=== PATIENT | male | born 1935 | race Caucasian/White ===

== ENCOUNTER 2021-04-15 09:05 | Observation (INO) ==
--- NOTE | 2021-04-15 09:20 | Emergency Department Note ---
Impression & Plan Elevated troponin, Left hip pain, Lower extremity edema, care home (current) use of anticoagulants, Mild cognitive impairment, Fall ED Provider Note NAME: ALBERTINA MCCALL AGE: 85 SEX: M : 1935 ARRIVES VIA: Ambulance INFORMANT: Patient, ED PROVIDER(S): Shane Rene DO CHIEF COMPLAINT: Fall HPI: Patient is a 85-year-old male who presents to ER following a fall yesterday where he had to be brought into the hospital waving contractor. He has been having trouble walking on the left hip since then. He has been walking. There is no report of any head pain. He is slightly confused but they note that his baseline. He does take Coumadin. Denies any headache or neck pain. No chest pain or shortness of breath. No belly pain, nausea, vomiting, or diarrhea. No dysuria, urgency, or frequency. No other exacerbating or remitting factors. ROS: See above HPI for pertinent positives & negatives. A total of 10 systems reviewed and were otherwise negative. PAST MEDICAL HISTORY:See Below PAST SURGICAL HISTORY:See Below FAMILY HISTORY:See Below SOCIAL HISTORY:See Below HOME MEDICATIONS:See Below ALLERGIES:See Below VITALS:See Below PHYSICAL EXAMINATION: GENERAL: alert, well appearing, well nourished, no distress, non-toxic HEAD: normal cephalic, atraumatic EYE EXAM: normal conjunctiva, PERRL and EOM's grossly intact OROPHARYNX: no exudate, no erythema, lips, buccal mucosa, and tongue normal and mucous membranes are moist NECK: supple, no nuchal rigidity, no adenopathy, non-tender CHEST: stable to compression anteriorly and posteriorly LUNGS: clear to auscultation. Normal chest wall mechanics HEART: no murmurs, S1 normal and S2 normal ABDOMEN: abdomen soft, non-tender, normo-active bowel sounds, no masses, no rebound or guarding. PELVIS: stable to compression anteriorly and posteriorly BACK: Back is symmetrical on inspection and there is no deformity, no midline tenderness, no CVA tenderness. UPPER EXTREMITIES: full active and passive range of motion of all joints without tenderness to palpation LOWER EXTREMITIES: Pitting edema in the lower extremities but full range of motion without tenderness with exception of the left hip with minimal tenderness NEURO EXAM: Normal sensorium, cranial nerves II-XII grossly intact, normal speech, no gross weakness of arms, no gross weakness of legs. GCS: 15. MEDICAL DECISION MAKING: Patient is an 85-year-old male who presents the ER for fall and left hip w eakness as well as swelling in the legs. IV was established blood work obtained. Labs show no significant leukocytosis or anemia. INR was 2.7. BMP with LFTs was unremarkable. Troponin was checked by 0.047. proBNP was 266. Lipase was normal. UA was unremarkable. Covid was negative. He did have pitting edema in the bilateral lower extremities. Given a small dose of Lasix and updated bedside. He denied any chest pain. EKG was nondiagnostic. Discussed with hospitalist admitted for further work-up. As patient had no chest pain or shortness of breath held on any heparin at this time. Calves were equal bilateral in favor PE much less likely especially without symptoms. Triage Nursing notes reviewed. Limited review of prior medical records performed Vital Signs: reviewed and remarkable for no significant abnormalities Differential diagnosis: Differential diagnoses include major intracranial, cervical, spinal, thoracic, abdominal, pelvic and neurologic injury. Fracture, contusion, sprain, strain, laceration, abrasions included as well. ER treatment provided: See below Diagnostics interpreted by me: ECG: Sinus bradycardia rate of 49 Normal axis Poor baseline Septal Q waves QTC [address] segment elevation V2 Cardiac Monitoring: An order was placed for continuous cardiac monitoring. The monitor shows a rate of 52 with sinus rhythm. Laboratory studies: As stated above and show below. Imaging studies: Chest x-ray as well as x-ray of the hand hip pelvis and CT of the head were negative Consultation(s): Discussed the hospitalist for further evaluation Procedures: none Critical Care: None Past Med/Surg History Medical History (Updated 04/15/21 @ 15:34 by Shane Rene DO) CKD (chronic kidney disease) stage 3, GFR 30-59 ml/min HTN (hypertension) care home (current) use of anticoagulants Mild cognitive impairment Prostate CA s/p brachytherapy Surgical History (Updated 04/15/21 @ 12:23 by Kacy Cat PA-C) History of appendectomy History of shoulder surgery b/l History of transcatheter aortic valve replacement (TAVR) 2015 Family History (Updated 04/15/21 @ 12:24 by Kacy Cat PA-C) Father COPD (chronic obstructive pulmonary disease) Mother Colorectal cancer Social History (Updated 04/15/21 @ 12:24 by Kacy Cat PA-C) Smoking Status: Never smoker Hx Alcohol Use: Yes Alcohol type: wine Alcohol Intake Frequency: 4 or More x per/Week Alcohol Intake Frequency Comment: daily, 8 oz per day Hx Substance Use: No Preferred Language: Polish Communication Ability: Effective marital status: Current Living Situation: Spouse Allergies Allergies Allergy/AdvReac Type Severity Reaction Status Date / Time No Known Allergies Allergy Unverified 04/15/21 11:44 Home Meds Home Medications Medication Instructions Recorded Confirmed amlodipine 5 mg tablet 5 mg PO PM 04/15/21 04/15/21 aspirin 81 mg tablet,delayed 81 mg PO PM 04/15/21 04/15/21 release furosemide 40 mg tablet 40 mg PO PM 04/15/21 04/15/21 glucosamine-chondroitin 250 mg-200 2 tab PO DAILY 04/15/21 04/15/21 mg tablet (Osteo Bi-Flex) losartan 25 mg tablet 25 mg PO PM 04/15/21 04/15/21 magnesium 250 mg tablet 250 mg PO DAILY 04/15/21 04/15/21 wgpoixox-lgu-lhcaa acid 300 1 tab PO PM 04/15/21 04/15/21 mcg-lycopene 600 mcg-lutein 300 mcg tablet (Centrum Silver Men) warfarin 2.5 mg tablet 1.25 mg PO MOFR@1600 04/15/21 04/15/21 warfarin 2.5 mg tablet 2.5 mg PO SUTUWETHSA@1600 04/15/21 04/15/21 Results & Data (ED) Vital Signs Vital Signs - 24 hr 04/15/21 09:15 04/15/21 09:18 04/15/21 09:20 Temperature 37 C Temperature Source Oral Pulse Rate 53 L Pulse Rate from SpO2 Sensor 52 L Respiratory Rate 18 17 Respiratory Depth Normal Blood Pressure 143/71 H Blood Pressure Mean 95 Pulse Oximetry 94 97 Oxygen Delivery Method Room Air Room Air Sepsis Recent Fever Within 48 Hours No Sepsis New/Unexplained Change in Mental Status No Sepsis Action Taken by Nursing No Action Required 04/15/21 09:45 04/15/21 10:00 04/15/21 10:15 Temperature Temperature Source Pulse Rate 53 L 53 L 53 L Pulse Rate from SpO2 Sensor 53 L 53 L 54 L Respiratory Rate 21 15 15 Respiratory Depth Blood Pressure Blood Pressure Mean Pulse Oximetry 97 97 99 Oxygen Delivery Method Sepsis Recent Fever Within 48 Hours Sepsis New/Unexplained Change in Mental Status Sepsis Action Taken by Nursing 04/15/21 10:30 04/15/21 10:45 Temperature Temperature Source Pulse Rate 51 L 50 L Pulse Rate from SpO2 Sensor 52 L 51 L Respiratory Rate 22 18 Respiratory Depth Blood Pressure Blood Pressure Mean Pulse Oximetry 97 97 Oxygen Delivery Method Sepsis Recent Fever Within 48 Hours Sepsis New/Unexplained Change in Mental Status Sepsis Action Taken by Nursing Laboratory Data Result diagrams: 04/15/21 09:15 04/15/21 09:15 Lab Results 04/15/21 04/15/21 04/15/21 Range/Units 09:15 09:15 09:15 WBC 8.86 (4.8-10.8) K/uL RBC 4.40 L (4.7-6.1) M/uL Hgb 13.3 L (14.0-18.0) g/dL Hct 41.3 L (42-52) % MCV 93.9 (80-100) fL MCH 30.2 (25-34) pg MCHC 32.2 (32-36) g/dL RDW Std Deviation 46.7 H (36.4-46.3) fL RDW Coeff of Porfirio 13.6 (11.5-14.5) % Plt Count 208 (130-400) K/uL MPV 10.0 (7.4-10.4) fL Immature Gran % (Auto) 0.2 % Neut % (Auto) 67.4 % Lymph % (Auto) 20.3 % [place] % (Auto) 10.5 % Eos % (Auto) 1.5 % Baso % (Auto) 0.1 % Neut # (Auto) 5.97 (1.4-6.5) K/uL Lymph # (Auto) 1.80 (1.2-3.4) K/uL [place] # (Auto) 0.93 H (0.11-0.59) K/uL Eos # (Auto) 0.13 (0-0.5) K/uL Baso # (Auto) 0.01 (0-0.2) K/uL Immature Gran # (Auto) 0.02 (0.00-0.02) K/uL PT 25.6 H (9.0-12.0) Seconds INR 2.7 H (0.9-1.1) Sodium 139 (136-145) mmol/L Potassium 4.6 (3.5-5.1) mmol/L Chloride 104 (98-107) mmol/L Carbon Dioxide 32 (21-32) mmol/L Anion Gap 3.0 (3-11) BUN 22 H (7-18) mg/dl Creatinine 1.40 (0.6-1.4) mg/dl Est Cr Clr Drug Dosing Not Reportable Est GFR ( Amer) 53.1 ml/min Est GFR (Non-Af Amer) 45.8 ml/min BUN/Creatinine Ratio 15.4 (10-20) Glucose 103 H (70-99) mg/dl Calcium 8.5 (8.5-10.1) mg/dl Total Bilirubin 0.7 (0.2-1) mg/dl AST 32 (15-37) U/L ALT 26 (12-78) U/L Alkaline Phosphatase 54 (45-117) U/L Troponin I 0.073 H* (0-0.045) ng/ml NT-Pro-B Natriuret Pep (0-1800) pg/ml Total Protein 6.2 L (6.4-8.2) gm/dl Albumin 3.2 L (3.4-5.0) gm/dl Globulin 3.0 (2.5-4.0) gm/dl Albumin/Globulin Ratio 1.1 (0.9-2) Lipase 213 (73-393) U/L Urine Color Urine Appearance (Clear) Urine pH (4.5-7.5) Ur Specific [place] (1.000-1.030) Urine Protein (Negative) Urine Glucose (UA) (Negative) Urine Ketones (Negative) Urine Blood (Negative) Urine Nitrite (Negative) Urine Bilirubin (Negative) Urine Urobilinogen (Negative) Ur Leukocyte Esterase (Negative) COVID-19 Eval Order SARS-CoV-2 (PCR) (Negative) 04/15/21 04/15/21 04/15/21 Range/Units 09:15 10:19 10:19 WBC (4.8-10.8) K/uL RBC (4.7-6.1) M/uL Hgb (14.0-18.0) g/dL Hct (42-52) % MCV (80-100) fL MCH (25-34) pg MCHC (32-36) g/dL RDW Std Deviation (36.4-46.3) fL RDW Coeff of Porfirio (11.5-14.5) % Plt Count (130-400) K/uL MPV (7.4-10.4) fL Immature Gran % (Auto) % Neut % (Auto) % Lymph % (Auto) % [place] % (Auto) % Eos % (Auto) % Baso % (Auto) % Neut # (Auto) (1.4-6.5) K/uL Lymph # (Auto) (1.2-3.4) K/uL [place] # (Auto) (0.11-0.59) K/uL Eos # (Auto) (0-0.5) K/uL Baso # (Auto) (0-0.2) K/uL Immature Gran # (Auto) (0.00-0.02) K/uL PT (9.0-12.0) Seconds INR (0.9-1.1) Sodium (136-145) mmol/L Potassium (3.5-5.1) mmol/L Chloride (98-107) mmol/L Carbon Dioxide (21-32) mmol/L Anion Gap (3-11) BUN (7-18) mg/dl Creatinine (0.6-1.4) mg/dl Est Cr Clr Drug Dosing Est GFR ( Amer) ml/min Est GFR (Non-Af Amer) ml/min BUN/Creatinine Ratio (10-20) Glucose (70-99) mg/dl Calcium (8.5-10.1) mg/dl Total Bilirubin (0.2-1) mg/dl AST (15-37) U/L ALT (12-78) U/L Alkaline Phosphatase (45-117) U/L Troponin I (0-0.045) ng/ml NT-Pro-B Natriuret Pep 266 (0-1800) pg/ml Total Protein (6.4-8.2) gm/dl Albumin (3.4-5.0) gm/dl Globulin (2.5-4.0) gm/dl Albumin/Globulin Ratio (0.9-2) Lipase (73-393) U/L Urine Color Urine Appearance (Clear) Urine pH (4.5-7.5) Ur Specific [place] (1.000-1.030) Urine Protein (Negative) Urine Glucose (UA) (Negative) Urine Ketones (Negative) Urine Blood (Negative) Urine Nitrite (Negative) Urine Bilirubin (Negative) Urine Urobilinogen (Negative) Ur Leukocyte Esterase (Negative) COVID-19 Eval Order Covid19 at [facility] SARS-CoV-2 (PCR) NEGATIVE (Negative) 04/15/21 Range/Units 10:59 WBC (4.8-10.8) K/uL RBC (4.7-6.1) M/uL Hgb (14.0-18.0) g/dL Hct (42-52) % MCV (80-100) fL MCH (25-34) pg MCHC (32-36) g/dL RDW Std Deviation (36.4-46.3) fL RDW Coeff of Porfirio (11.5-14.5) % Plt Count (130-400) K/uL MPV (7.4-10.4) fL Immature Gran % (Auto) % Neut % (Auto) % Lymph % (Auto) % [place] % (Auto) % Eos % (Auto) % Baso % (Auto) % Neut # (Auto) (1.4-6.5) K/uL Lymph # (Auto) (1.2-3.4) K/uL [place] # (Auto) (0.11-0.59) K/uL Eos # (Auto) (0-0.5) K/uL Baso # (Auto) (0-0.2) K/uL Immature Gran # (Auto) (0.00-0.02) K/uL PT (9.0-12.0) Seconds INR (0.9-1.1) Sodium (136-145) mmol/L Potassium (3.5-5.1) mmol/L Chloride (98-107) mmol/L Carbon Dioxide (21-32) mmol/L Anion Gap (3-11) BUN (7-18) mg/dl Creatinine (0.6-1.4) mg/dl Est Cr Clr Drug Dosing Est GFR ( Amer) ml/min Est GFR (Non-Af Amer) ml/min BUN/Creatinine Ratio (10-20) Glucose (70-99) mg/dl Calcium (8.5-10.1) mg/dl Total Bilirubin (0.2-1) mg/dl AST (15-37) U/L ALT (12-78) U/L Alkaline Phosphatase (45-117) U/L Troponin I (0-0.045) ng/ml NT-Pro-B Natriuret Pep (0-1800) pg/ml Total Protein (6.4-8.2) gm/dl Albumin (3.4-5.0) gm/dl Globulin (2.5-4.0) gm/dl Albumin/Globulin Ratio (0.9-2) Lipase (73-393) U/L Urine Color Dark Yellow Urine Appearance Clear (Clear) Urine pH 7.5 (4.5-7.5) Ur Specific [place] 1.015 (1.000-1.030) Urine Protein Negative (Negative) Urine Glucose (UA) Negative (Negative) Urine Ketones Negative (Negative) Urine Blood Negative (Negative) Urine Nitrite Negative (Negative) Urine Bilirubin Negative (Negative) Urine Urobilinogen Negative (Negative) Ur Leukocyte Esterase Negative (Negative) COVID-19 Eval Order SARS-CoV-2 (PCR) (Negative) Administered Medications Discontinued Medications Furosemide (Furosemide 40 Mg/4 Ml Vial) 40 mg IV NOW STA Stop: 04/15/21 10:57 Last Admin: 04/15/21 11:34 Dose: 40 mg Documented by: [id number] Imaging Data Radiologist's Impression: Head CT 04/15/21 09:[address] DOSE: 537.48 mGy.cm HISTORY: Headache. TECHNIQUE: Multiaxial CT images of the head were performed without the use of intravenous contrast. Automated exposure control was utilized for this study. A dose lowering technique was utilized adhering to the principles of ALARA. Comparison: None. Findings: The paranasal sinuses and mastoid air cells are clear. The calvarium and skull base are intact. There is no mass, hematoma, midline shift, acute infarct. White matter hypodensity is nonspecific but suggestive of microvascular ischemic change. The ventricles and sulci demonstrate mild age-related involutional changes. 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 Impression: No acute intracranial abnormality. Atrophy and microvascular ischemic changes. ACT 112: Negative or not required by law. Electronically signed by: Jorge Ruffin M.D. 04/15/2021 9:55 AM Hip/Pelvis X-Ray 04/15/21 09:15 XR hip LT 2V w pelvis CLINICAL HISTORY: l pelvis pain status post fall yesterday TECHNIQUE: 2 views of the right hip and single frontal view of the pelvis were obtained. Comparison: None available at the time of this dictation. FINDINGS: There is no evidence of fracture, subluxation or dislocation. The bones are anatomically aligned. Metallic densities are seen in the midline of the pelvis. IMPRESSION: No evidence of acute bony injury. ACT 112: Negative or not required by law. Electronically signed by: Matthias Marquez M.D. 04/15/2021 10:17 AM Hand X-Ray 04/15/21 09:49 LEFT HAND 3 VIEWS HISTORY: Left hand pain. COMPARISON: None. FINDINGS: There is no fracture or dislocation. 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 Faint chondrocalcinosis within the wrist is noted. Mild cartilage space narrowing and small marginal osteophytes within the DIP and PIP joints consistent with degenerative change. No erosive changes identified. The bones are slightly osteopenic. No radiopaque foreign bodies. IMPRESSION: 1. No acute fracture or dislocation within the left hand. 2. Degenerative changes as described above. 3. Chondrocalcinosis within the wrist. ACT 112: Negative or not required by law. Electronically signed by: Jorge Ruffin M.D. 04/15/2021 10:20 AM Discharge Plan Visit Data Chief Complaint: Hip Pain Stated Complaint: L Hip pain s/p fall yesterday ED Provider: Shane Rene Discharge Problem: Elevated troponin, Left hip pain, Lower extremity edema, care home (current) use of anticoagulants, Mild cognitive impairment, Fall
[2021-04-15 09:32] LABS: Basophils # (auto) 0.01 K/uL (0-0.2); Basophils % (auto) 0.1 %; Eosinophils # (auto) 0.13 K/uL (0-0.5); Eosinophils % (auto) 1.5 %; Hematocrit (blood only) 41.3 % (42-52); Hemoglobin 13.3 g/dL (14.0-18.0); Immature Granulocytes # (auto) 0.02 K/uL (0.00-0.02); Immature Granulocytes % (auto) 0.2 %; Lymphocytes % (auto) 20.3 %; Mean Corpuscular Hemoglobin 30.2 pg (25-34); Mean Corpuscular Hgb Conc 32.2 g/dL (32-36); Mean Corpuscular Volume 93.9 fL (80-100); Monocytes # (auto) 0.93 K/uL (0.11-0.59); Monocytes % (auto) 10.5 %; Neutrophils # (auto) 5.97 K/uL (1.4-6.5); Neutrophils % (auto) 67.4 %; Platelet Count 208 K/uL (130-400); RDW Coefficient of Variation 13.6 % (11.5-14.5); RDW Standard Deviation 46.7 fL (36.4-46.3); White Blood Count 8.86 K/uL (4.8-10.8)
[2021-04-15 09:40] LABS: INR 2.7 (0.9-1.1); Prothrombin Time 25.6 Seconds (9.0-12.0)
[2021-04-15 09:49] LABS: Alanine Aminotransferase 26 U/L (12-78); Albumin Level 3.2 gm/dl (3.4-5.0); Aspartate Aminotransferase 32 U/L (15-37); BUN Creatinine Ratio 15.4 (10-20); Blood Urea Nitrogen 22 mg/dl (7-18); Calcium 8.5 mg/dl (8.5-10.1); Carbon Dioxide 32 mmol/L (21-32); Chloride 104 mmol/L (98-107); Est GFR (African American) 53.1 ml/min; Est GFR (Non-African American) 45.8 ml/min; Glucose 103 mg/dl (70-99); Lipase 213 U/L (73-393); Potassium 4.6 mmol/L (3.5-5.1); Sodium 139 mmol/L (136-145)
--- NOTE | 2021-04-15 09:56 | CT Scan Report ---
HEAD CT NONCONTRAST CT DOSE: 537.48 mGy.cm HISTORY: Headache. TECHNIQUE: Multiaxial CT images of the head were performed without the use of intravenous contrast. A utomated exposure control was utilized for this study. A dose lowering technique was utilized adheri ng to the principles of ALARA. Comparison: None. Findings: The paranasal sinuses and mastoid air cells are clear. The calvarium and skull base are int act. There is no mass, hematoma, midline shift, acute infarct. White matter hypodensity is nonspecifi c but suggestive of microvascular ischemic change. The ventricles and sulci demonstrate mild age-rela mike involutional changes. 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 Impression: No acute intracranial abnormality. Atrophy and microvascular ischemic changes. ACT 112: Negative or not required by law. Electronically signed by: Jorge Ruffin M.D. 04/15/2021 9:55 AM
[2021-04-15 10:01] LABS: Albumin Globulin Ratio 1.1 (0.9-2); Alkaline Phosphatase 54 U/L (45-117); Bilirubin,Total 0.7 mg/dl (0.2-1); Total Protein 6.2 gm/dl (6.4-8.2); Troponin I 0.073 ng/ml (0-0.045)
--- NOTE | 2021-04-15 10:18 | XRay Report ---
XR hip LT 2V w pelvis CLINICAL HISTORY: l pelvis pain status post fall yesterday TECHNIQUE: 2 views of the right hip and single frontal view of the pelvis were obtained. Comparison: None available at the time of this dictation. FINDINGS: There is no evidence of fracture, subluxation or dislocation. The bones are anatomically aligned. Met allic densities are seen in the midline of the pelvis. IMPRESSION: No evidence of acute bony injury. ACT 112: Negative or not required by law. Electronically signed by: Matthias Marquez M.D. 04/15/2021 10:17 AM
--- NOTE | 2021-04-15 10:22 | XRay Report ---
LEFT HAND 3 VIEWS HISTORY: Left hand pain. COMPARISON: None. FINDINGS: There is no fracture or dislocation. Severe osteoarthritis at the first carpometacarpal katt nt and first and second MCP joints demonstrated by [id number] articulation with large marginal oste ophytes. Faint chondrocalcinosis within the wrist is noted. Mild cartilage space narrowing and small marginal osteophytes within the DIP and PIP joints consistent with degenerative change. No erosive ch anges identified. The bones are slightly osteopenic. No radiopaque foreign bodies. IMPRESSION: 1. No acute fracture or dislocation within the left hand. 2. Degenerative changes as described above. 3. Chondrocalcinosis within the wrist. ACT 112: Negative or not required by law. Electronically signed by: Jorge Ruffin M.D. 04/15/2021 10:20 AM
[2021-04-15] MEDS ORDERED: FUROSEMIDE 40 MG/4 ML VIAL IV STA (10:56)
[2021-04-15 11:28] LABS: Appearance Urine Clear (Clear); Bilirubin Urine Negative (Negative); Blood Urine Negative (Negative); Color Urine Dark Yellow; Glucose Urine UA Negative (Negative); Ketones Urine Negative (Negative); Leukocyte Esterase Urine Negative (Negative); Nitrite Urine Negative (Negative); Protein Urine Negative (Negative); Specific Gravity Urine 1.015 (1.000-1.030); Urobilinogen Urine Negative (Negative); pH Urine 7.5 (4.5-7.5)
--- NOTE | 2021-04-15 12:06 | History & Physical Report ---
Date of Service April 15, 2021 Assessment & Plan (1) Fall: (2) Left hip pain: (3) Elevated troponin: (4) HTN (hypertension): (5) custodial (current) use of anticoagulants: (6) CKD (chronic kidney disease) stage 3, GFR 30-59 ml/min: (7) Lower extremity edema: Plan: This is an 85-year-old male who has significant past medical history of TAVR, long-term anticoagulation with Coumadin, history of prostate cancer status post brachytherapy, hypertension who presents to ED after sustaining mechanical fall and having left hip pain x 1 day. Pt is from [place], [place] and they are currently relocated back to [place], [place]. Will need to obtain records from PCP Dr. Jose J Coppola and [place] Dr. Nba Lyon. Fall, mechnical L hip pain imaging does not reveal acute fx obtain PT/OT consults APAP, ICE Elevated troponin unknown baseline pt is w/o chest pain/sob and ekg w/o st t wave change cycle trops obtain echo consult cardiology - pt will need to establish with cardiology in area HTN bp stable continue losartan and amlodipine monitor Lower extremity swelling pro BNP WNL and CXR w/o pulm vasc congestion edema may be dependent, vs ADR with amlodipine less likely volume overload will monitor daily weights, strict I and O TEDS ordered he did receive Lasix 40mg IV in ED, monitor output hold 40mg po daily lasix for now, resume when able custodial use of warfarin pt and state 2/2 to TAVR? will need to obtain cardiology recs states INR goal is 2-3, INR therapeutic today continue home regimen, 1.25 MoFR and 2.5mg all other days Abrasion to b/l knee 2/2 to fall apply Neosporin daily CKD-3 unknown baseline bun/cr 22 and 1.40 monitor Mild cognitive impairment pt alert to self and place states baseline, no formal dx of dementia DVT ppx: continue warfarin, INR 2.7 Dispo: med tele, will need PT/OT eval to determine dispo FULL CODE PCP: needs to establish with [facility] PCP Pt was seen and examined in collaboration with Dr. Faith, please see addendum History of Present Illness Chief Complaint: L Hip Pain x 1 day. Primary Care Provider: Jose J Coppola MD This is an 85-year-old male who has significant past medical history of TAVR, long-term anticoagulation with Coumadin, history of prostate cancer status post brachytherapy, hypertension who presents to ED after sustaining mechanical fall and having left hip pain x 1 day. His is at bedside. Of significance patient and reside mainly in [place], [place], but come back to [place] on occasion. Currently they are in the process of renovating a house and moving back to the [place] area permanently. Yesterday patient was taking the trash out and pulling the can down the driveway when he lost his footing and fell on his left side. provides most of history. She states it took approximately an hour and a half to get him back inside. He ended up falling on his hands and knees back to the carport. He since complained of left hip pain and also sustained abrasions to his left hand and bilateral knees. She had been using topical Neosporin for this. He has not been using anything [id number] for pain. He is having difficulty ambulating but was able to get from the living room chair to bed her last evening. opted to bring patient to ED due to left hip pain and lack of mobility. He did not hit his head or lose consciousness. It appears patient does have some underlying cognitive deficits, but history appears reliable. Up until yesterday's fall he has been in her normal state of health. He denies recent illness, fever, chills, sweats, lightheadedness, dizziness, syncope, chest pain, shortness of breath at rest, cough, hemoptysis, nausea, vomiting, abdominal pain. His appetite is otherwise been normal. He does have bilateral lower extremity swelling. states they use ALDO hose for this and he does take Lasix. He prefers to take Lasix at night despite requiring him to go to the bathroom. He has missed his Lasix on occasion. Patient denies prior history of heart failure. In ED he remained hemodynamically stable. He underwent imaging to hip and pelvis which was negative for acute fracture. Head CT was negative for acute abnormality. His CBC and CMP were generally unremarkable except for BUN 22, creatinine 1.4, glucose 103, elevated troponin 0.073. His urinalysis was negative and proBNP was WNL. His H&H was stable at 13.3 and 41.3. Allergies Allergy/AdvReac Type Severity Reaction Status Date / Time No Known Allergies Allergy Unverified 04/15/21 11:44 Home Medications Medication Instructions Recorded Confirmed Type amlodipine 5 mg tablet 5 mg PO PM 04/15/21 04/15/21 History aspirin 81 mg tablet,delayed 81 mg PO PM 04/15/21 04/15/21 History release furosemide 40 mg tablet 40 mg PO PM 04/15/21 04/15/21 History glucosamine-chondroitin 250 mg-200 2 tab PO DAILY 04/15/21 04/15/21 History mg tablet (Osteo Bi-Flex) losartan 25 mg tablet 25 mg PO PM 04/15/21 04/15/21 History magnesium 250 mg tablet 250 mg PO DAILY 04/15/21 04/15/21 History wpgppxds-yoz-tbeyi acid 300 1 tab PO PM 04/15/21 04/15/21 History mcg-lycopene 600 mcg-lutein 300 mcg tablet (Centrum Silver Men) warfarin 2.5 mg tablet 1.25 mg PO MOFR@1600 04/15/21 04/15/21 History warfarin 2.5 mg tablet 2.5 mg PO SUTUWETHSA@1600 04/15/21 04/15/21 History Past Med/Surg History Medical History (Updated 04/15/21 @ 15:34 by Shane Rene DO) CKD (chronic kidney disease) stage 3, GFR 30-59 ml/min 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 (hypertension) 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 Mild cognitive impairment Prostate CA s/p brachytherapy Surgical History (Updated 04/15/21 @ 12:23 by Kacy Cat PA-C) History of appendectomy History of shoulder surgery b/l History of transcatheter aortic valve replacement (TAVR) 2016 Family History (Updated 04/15/21 @ 12:24 by Kacy Cat PA-C) Father COPD (chronic obstructive pulmonary disease) Mother Colorectal cancer Social History (Updated 04/15/21 @ 12:24 by Kacy Cat PA-C) Smoking Status: Never smoker Hx Alcohol Use: Yes Alcohol type: wine Alcohol Intake Frequency: 4 or More x per/Week Alcohol Intake Frequency Comment: daily, 8 oz per day Hx Substance Use: No Preferred Language: Icelandic Communication Ability: Effective marital status: Current Living Situation: Spouse Review of Systems Review of Systems: All systems reviewed & are unremarkable except as noted in HPI & below Physical Exam Physical Exam: Constitutional: WD/WN, [place], M, hard of hearing, alert to self and place only, vitals as above, NAD, sitting up in bed, pleasant, conversing easily Head: Normocephalic, Atraumatic Eyes: PERRL, conjunctivae normal, anicteric sclerae ENMT: external ear and nose normal, oropharynx normal Neck: trachea midline, no thyromegaly normal visual inspection Respiratory: normal respiratory effort, lungs clear to auscultation, no wheeze, rales, rhonchi. Normal insp/exp effort, no accessory muscle use Cardiovascular: bradycardic rate, reg rhythm, +2 lower ext edema, no murmur Vessels: no JVD or carotid bruit Chest: normal inspection of chest Abdomen: normal bowel sounds, soft, nontender, no hepatosplenomegaly Musculoskeletal: no cyanosis or clubbing, extremities AROM x 4, pain to palp L lateral thigh, strength 4/5 Skin: no rashes, warm and dry normal turgor Neurologic: PERRL, EOMI, accommodation nl, no face palsy, no dysarthria CN's II-XI intact bilaterally and moves all extremities Psychiatric: A+Ox2 to self and place, not oriented to year/date, president, euthymic affect Lymphatic: no cervical or axillary lymphadenopathy : deferred denies Results & Data Results & Data ([facility]) Vital Signs (Past 12 Hours) Vital Signs Temp Pulse Resp BP Pulse Ox 04/15/21 11:15 53 L 25 H 97 04/15/21 11:00 57 L 25 H 96 04/15/21 10:45 50 L 18 97 04/15/21 10:30 51 L 22 97 04/15/21 10:15 53 L 15 99 04/15/21 10:00 53 L 15 97 04/15/21 09:45 53 L 21 97 04/15/21 09:18 53 L 17 97 04/15/21 09:15 37 C 18 143/71 H [address] 04/15/21 09:[address] DOSE: 537.48 mGy.cm HISTORY: Headache. TECHNIQUE: Multiaxial CT images of the head were performed without the use of intravenous contrast. Automated exposure control was utilized for this study. A dose lowering technique was utilized adhering to the principles of ALARA. Comparison: None. Findings: The paranasal sinuses and mastoid air cells are clear. The calvarium and skull base are intact. There is no mass, hematoma, midline shift, acute infarct. White matter hypodensity is nonspecific but suggestive of microvascular ischemic change. The ventricles and sulci demonstrate mild age-related involutional changes. 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 Impression: No acute intracranial abnormality. Atrophy and microvascular ischemic changes. ACT 112: Negative or not required by law. Electronically signed by: Jorge Ruffin M.D. 04/15/2021 9:55 AM Hip/Pelvis X-Ray 04/15/21 09:15 XR hip LT 2V w pelvis CLINICAL HISTORY: l pelvis pain status post fall yesterday TECHNIQUE: 2 views of the right hip and single frontal view of the pelvis were obtained. Comparison: None available at the time of this dictation. FINDINGS: There is no evidence of fracture, subluxation or dislocation. The bones are anatomically aligned. Metallic densities are seen in the midline of the pelvis. IMPRESSION: No evidence of acute bony injury. ACT 112: Negative or not required by law. Electronically signed by: Matthias Marquez M.D. 04/15/2021 10:17 AM Hand X-Ray 04/15/21 09:49 LEFT HAND 3 VIEWS HISTORY: Left hand pain. COMPARISON: None. FINDINGS: There is no fracture or dislocation. 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 Faint chondrocalcinosis within the wrist is noted. Mild cartilage space narrowing and small marginal osteophytes within the DIP and PIP joints consistent with degenerative change. No erosive changes identified. The bones are slightly osteopenic. No radiopaque foreign bodies. IMPRESSION: 1. No acute fracture or dislocation within the left hand. 2. Degenerative changes as described above. 3. Chondrocalcinosis within the wrist. ACT 112: Negative or not required by law. Electronically signed by: Jorge Ruffin M.D. 04/15/2021 10:20 AM Chest X-Ray 04/15/21 11:43 SINGLE VIEW CHEST CLINICAL HISTORY: Dyspnea. FINDINGS: An AP, portable, upright chest radiograph is obtained. No prior studies are available for comparison at the time of dictation. The examination is degraded by portable technique and patient rotation. There are calcified hilar nodes. The heart is mildly enlarged noting atherosclerotic calcification of the thoracic aorta. The pulmonary vasculature is noncongested. There is elevation of the right hemidiaphragm and bibasilar atelectasis. No airspace consolidation typical for pneumonia or large pleural effusion is identified. Calcified granuloma is noted in the left lower lung. No pneumothorax is seen. The skeletal structures are osteopenic. The bony thorax is grossly intact. Advanced arthritic change is seen in the shoulders. Postoperative change is partially visualized in the left humeral head. IMPRESSION: Mild cardiomegaly with no acute cardiopulmonary abnormality. ACT 112: Negative or not required by law. Electronically signed by: Jama Reaves M.D. 04/15/2021 12:14 PM Medications Administered Medication List Discontinued Medications Furosemide (Furosemide 40 Mg/4 Ml Vial) 40 mg IV NOW STA Stop: 04/15/21 10:57 Last Admin: 04/15/21 11:34 Dose: 40 mg Documented by: [id number] ECG Rate (beats per minute): 49 Rhythm: sinus bradycardia Findings: + 1st degree AV block COVID-19 Results Results COVID-19 Adm Lab Results: RBC 4.40 M/uL (4.7-6.1) L 04/15/21 WBC 8.86 K/uL (4.8-10.8) 04/15/21 Hgb 13.3 g/dL (14.0-18.0) L 04/15/21 Hct 41.3 % (42-52) L 04/15/21 Plt Count 208 K/uL (130-400) 04/15/21 Neutrophils (%) (Auto) 67.4 % 04/15/21 Lymphocytes (%) (Auto) 20.3 % 04/15/21 Monocytes # (Auto) 0.93 K/uL (0.11-0.59) H 04/15/21 Eosinophils # (Auto) 0.13 K/uL (0-0.5) 04/15/21 Immature Granulocyte % (Auto) 0.2 % 04/15/21 Neutrophils # (Auto) 5.97 K/uL (1.4-6.5) 04/15/21 Lymphocytes # (Auto) 1.80 K/uL (1.2-3.4) 04/15/21 Monocytes # (Auto) 0.93 K/uL (0.11-0.59) H 04/15/21 Eosinophils # (Auto) 0.13 K/uL (0-0.5) 04/15/21 Basophils # (Auto) 0.01 K/uL (0-0.2) 04/15/21 Immature Granulocyte # (Auto) 0.02 K/uL (0.00-0.02) 04/15/21 Na 139 mmol/L (136-145) 04/15/21 K 4.6 mmol/L (3.5-5.1) 04/15/21 Cl 104 mmol/L (98-107) 04/15/21 CO2 32 mmol/L (21-32) 04/15/21 Anion Gap 3.0 (3-11) 04/15/21 BUN 22 mg/dl (7-18) H 04/15/21 Creatinine 1.40 mg/dl (0.6-1.4) 04/15/21 BUN/Creatinine Ratio 15.4 (10-20) 04/15/21 Glucose Level 103 mg/dl (70-99) H 04/15/21 Ca 8.5 mg/dl (8.5-10.1) 04/15/21 Total Bilirubin 0.7 mg/dl (0.2-1) 04/15/21 AST/SGOT 32 U/L (15-37) 04/15/21 ALT/SGPT 26 U/L (12-78) 04/15/21 Alkaline Phosphatase 54 U/L (45-117) 04/15/21 Total Protein 6.2 gm/dl (6.4-8.2) L 04/15/21 Albumin 3.2 gm/dl (3.4-5.0) L 04/15/21 Globulin 3.0 gm/dl (2.5-4.0) 04/15/21 Albumin/Globulin Ratio 1.1 (0.9-2) 04/15/21 Troponin I 0.047 ng/ml (0-0.045) H* 04/15/21 TP-Mpm-W-Type Natriuretic Pep 266 pg/ml (0-1800) 04/15/21 INR 2.7 (0.9-1.1) H 04/15/21 COVID-19 PCR NEGATIVE (Negative) 04/15/21 Chest X-Ray 04/15/21 Code Status & VTE Plan Code Status full code VTE Prophylaxis Plan VTE Prophylaxis will be ordered: Yes Supervising Physician Co-Signing Physician Notes And is an 85-year-old male with multiple comorbidities presents with history of mechanical fall resulting in left hip pain since 1 day duration. Patient had difficulty with ambulation secondary to pain. Imaging studies did not show any acute fractures. He was found to be bradycardic while in the ER, INR therapeutic 2.7, mild troponin elevation 0.073, patient denies any chest pain, dyspnea, dizziness, nausea, abdominal pain. Please review HPI for complete details of presentation. On exam patient is obese, no apparent distress, n ormocephalic atraumatic, EOMI, normal breath sounds, clear to auscultation, S1- S2, no audible murmur, bradycardia, abdomen soft, nontender, normal bowel sounds, alert, awake, oriented, grossly no focal deficits, left lower extremity tenderness at the thigh region, decreased mobility due to pain, bilateral lower extremity edema present. Patient is admitted for management of left hip pain associated with ambulatory dysfunction secondary to mechanical fall. Incidentally also noted mild troponin elevation. Given significant cardiac history, will obtain resting echo, trend cardiac enzymes and obtain old records. Will check CK levels and consider repeat imaging if leg pain does not improve tomorrow given anticoagulation with Coumadin. PT OT evaluation, fall precautions. May need rehab placement. I personally reviewed the record. Patient is interviewed and examined at bedside. Patient's care is coordinated with Kacy Cat PA-C. Please refer to the documentation above for details of patient's presentation and for discussion of other issues.
--- NOTE | 2021-04-15 12:15 | XRay Report ---
SINGLE VIEW CHEST CLINICAL HISTORY: Dyspnea. FINDINGS: An AP, portable, upright chest radiograph is obtained. No prior studies are available for c omparison at the time of dictation. The examination is degraded by portable technique and patient rot ation. There are calcified hilar nodes. The heart is mildly enlarged noting atherosclerotic calcifica tion of the thoracic aorta. The pulmonary vasculature is noncongested. There is elevation of the righ t hemidiaphragm and bibasilar atelectasis. No airspace consolidation typical for pneumonia or large p leural effusion is identified. Calcified granuloma is noted in the left lower lung. No pneumothorax i s seen. The skeletal structures are osteopenic. The bony thorax is grossly intact. Advanced arthritic change is seen in the shoulders. Postoperative change is partially visualized in the left humeral he ad. IMPRESSION: Mild cardiomegaly with no acute cardiopulmonary abnormality. ACT 112: Negative or not required by law. Electronically signed by: Jama Reaves M.D. 04/15/2021 12:14 PM
[2021-04-15] MEDS ORDERED: MAGNESIUM HYDROXIDE SUSP 30 ML UDC PO PRN (17:03)
[2021-04-15] MEDS ORDERED: ALUMINUM/MAGNESIUM SUSP 30 ML UDC PO PRN (17:03)
[2021-04-15] MEDS ORDERED: ACETAMINOPHEN 325 MG TAB PO PRN (17:03)
[2021-04-15] MEDS ORDERED: ONDANSETRON INJ 2 MG/ML 2 ML VIAL IV PRN (17:03)
[2021-04-15] MEDS ORDERED: POLYETHYLENE (MIRALAX) 17 GM PACK PO PRN (17:03)
[2021-04-15] MEDS: ACETAMINOPHEN 325 MG TAB PO SCH ×2 (17:41→20:12)
[2021-04-15] MEDS: WARFARIN SOD 2.5 MG TAB PO SCH (18:19)
--- NOTE | 2021-04-15 19:13 | Ultrasound Report ---
RENAL ULTRASOUND CLINICAL HISTORY: Hematuria. COMPARISON STUDY: None. TECHNIQUE: Sonography of the kidneys and the urinary bladder was performed. FINDINGS: This exam is significantly compromised by suboptimal penetration. The right kidney measures approximately 9.3 x 5.2 x 6.2 cm and the left measures 10 x 4.7 x 6.7 cm. There is no hydronephrosis . Both ureteral jets were identified. IMPRESSION: 1. No hydronephrosis. 2. Exam significantly compromised by suboptimal penetration. ACT 112: Negative or not required by law. Electronically signed by: Maxwell Funez M.D. 04/15/2021 7:11 PM
[2021-04-15 20:27] LABS: Troponin I 0.048 ng/ml (0-0.045)
[2021-04-15] MEDS: NEOMYCIN/POLYMYX/BACITR OINT 15 GM TUBE EXT SCH (20:43)
[2021-04-15] MEDS ORDERED: ASPIRIN 81 MG ECTAB PO SCH (21:00)
[2021-04-15] MEDS ORDERED: LOSARTAN POTASSIUM 25 MG TAB PO SCH (21:00)
[2021-04-15] MEDS ORDERED: MULTIVITAMIN TAB PO SCH (21:00)
[2021-04-15] MEDS ORDERED: amLODIPine BESYLATE 5 MG TAB PO SCH (21:00)
[2021-04-16 06:58] LABS: Hematocrit (blood only) 37.3 % (42-52); Hemoglobin 12.1 g/dL (14.0-18.0); Mean Corpuscular Hemoglobin 29.7 pg (25-34); Mean Corpuscular Hgb Conc 32.4 g/dL (32-36); Mean Corpuscular Volume 91.6 fL (80-100); Mean Platelet Volume 10.3 fL (7.4-10.4); Platelet Count 195 K/uL (130-400); RDW Coefficient of Variation 13.9 % (11.5-14.5); RDW Standard Deviation 46.4 fL (36.4-46.3); Red Blood Count 4.07 M/uL (4.7-6.1); White Blood Count 7.25 K/uL (4.8-10.8)
[2021-04-16 07:22] LABS: INR 2.6 (0.9-1.1); Prothrombin Time 24.6 Seconds (9.0-12.0)
[2021-04-16 07:30] LABS: BUN Creatinine Ratio 16.4 (10-20); Blood Urea Nitrogen 21 mg/dl (7-18); Calcium 8.5 mg/dl (8.5-10.1); Carbon Dioxide 28 mmol/L (21-32); Chloride 106 mmol/L (98-107); Chol HDL Ratio 3; Cholesterol 161 mg/dl (0-200); Creatine Kinase 620 U/L (39-308); Est GFR (African American) 59.7 ml/min; Est GFR (Non-African American) 51.5 ml/min; Glucose 94 mg/dl (70-99); HDL Cholesterol 48 mg/dl; LDL Cholesterol Calculated 96 mg/dl; Magnesium 2.4 mg/dl (1.8-2.4); Potassium 3.8 mmol/L (3.5-5.1); Sodium 140 mmol/L (136-145); Triglycerides 86 mg/dl (0-150); VLDL Cholesterol 17 mg/dl
[2021-04-16 07:32] LABS: Estimated Average Glucose 105 mg/dl; Hemoglobin A1C 5.3 % (4.5-5.6)
[2021-04-16] MEDS: ACETAMINOPHEN 325 MG TAB PO SCH ×2 (07:57→15:19)
[2021-04-16] MEDS: NEOMYCIN/POLYMYX/BACITR OINT 15 GM TUBE EXT SCH (07:58)
--- NOTE | 2021-04-16 08:30 | Cardiology Consultation ---
Date of Consultation April 16, 2021 Assessment & Plan (1) Fall: (2) Left hip pain: (3) Elevated troponin: (4) S/P TAVR (transcatheter aortic valve replacement): (5) HTN (hypertension): Patient admitted s/p fall and left hip pain. No acute facture. Recommend PT/OT and pain management. If ongoing trouble ambulating, could consider further imaging or ortho consult. Mildly elevated troponin, not indicative of ACS. Normal EKG. Unremarkable echo without wall motion abnormalities. Minimal troponin elevation due to demand ischemia, with elevated BP in setting of acute pain. He has no anginal symptoms. No known history of CAD. Cardiology records from [place] have been requested on admission. Apparently he has history of TAVR. No valvular issues on echo, but limited study due to body habitus. He is on chronic Coumadin, reasoning is uncertain, as typically post TAVR they are treated with antiplatelet therapy. He may have a history of post op afib? Will continue anticoagulation and request records. BP borderline elevated. Consider titration of losartan if needed. Would not in crease amlodipine due to history of chronic edema. Continue all other cardiac medications. No further cardiac testing warranted at this time. Case to be discussed with Dr. Islas Supervising Physician Co-Signing Physician Notes Patient seen and examined with Sobia Sears PA-C. Agree with findings and assessment as above. Mild troponin elevation does not appear to be ischemic in nature. Patient has extensive cardiac history and will need to obtain records from previous clinical research management associate. Medications as above. History of Present Illness Reason for Consultation: Elevated troponin Requesting Physician: Dr. Faith Attending Physician: Dr. Islas History of Present Illness Patient is an 85 year old male who presented to [facility] after sustaining a fall and left hip pain with difficulty ambulating. Due to ongoing discomfort, patient's brought him to the ER. No acute fractures noted on xray. Per review of admission records, patient typically resides in [place], [place] but is renovating a house here and will be relocating to this area in the future. For now, they travel back and forth. He has a clinical research management associate in [place] due to history of TAVR. Records have been requested upon admission. Patient is on chronic Coumadin, but unsure of reason. Await records. Patient is a poor historian. Most of the history is obtained from admission records. At time of consult, patient was unable to tell me why he was admitted to the hospital. He did not recall his fall initially. However after being reminded, he was able to tell me he slipped on gravel in his driveway. He denied dizziness, syncope or near syncope. He did not hit his head. He denied recent chest pain but admits to intermittent indigestion. He denies worsening shortness of breath, palpitations, tachypalpitations. He was unable to tell me his clinical research management associate's name from [place]. He did report he had a vavle replacement, presumed TAVR because no sternotomy scar, but is unable to tell me the date/year of his surgery. When questioned about history of paroxysmal atrial fibrillation, he reports "that sounds familiar". He notes ongoing lower extremity edema which is stable and unchanged, per patient. He takes medications for high blood pressure. Upon arrival to the emergency department he was found to have minimally elevated troponin at 0.07, improving to 0.048 on repeat. No acute ischemic changes noted on EKG. He had echo upon admission which demonstrated normal LV function, no wall motion abnormalities without valvular disease, although technically limited study. At time of consult, patient is feeling well. He reports he was ambulating in the hallway earlier today, but I am unsure if this is truly the case. Again he is a very poor historian. Unsure of baseline. There was mention of dementia on admission records. He currently denies complaints. Allergies Allergy/AdvReac Type Severity Reaction Status Date / Time No Known Allergies Allergy Unverified 04/15/21 11:44 Home Medications Medication Instructions Recorded Confirmed Type amlodipine 5 mg tablet 5 mg PO PM 04/15/21 04/15/21 History aspirin 81 mg tablet,delayed 81 mg PO PM 04/15/21 04/15/21 History release furosemide 40 mg tablet 40 mg PO PM 04/15/21 04/15/21 History glucosamine-chondroitin 250 mg-200 2 tab PO DAILY 04/15/21 04/15/21 History mg tablet (Osteo Bi-Flex) losartan 25 mg tablet 25 mg PO PM 04/15/21 04/15/21 History magnesium 250 mg tablet 250 mg PO DAILY 04/15/21 04/15/21 History ucoemrbi-pub-lgmej acid 300 1 tab PO PM 04/15/21 04/15/21 History mcg-lycopene 600 mcg-lutein 300 mcg tablet (Centrum Silver Men) warfarin 2.5 mg tablet 1.25 mg PO MOFR@1600 04/15/21 04/15/21 History warfarin 2.5 mg tablet 2.5 mg PO SUTUWETHSA@1600 04/15/21 04/15/21 History neomycin-bacitracn Zn-polymyx 3.5 1 applic EXT BID #1 tube 04/16/21 Rx mg-400 unit-5,000 unit/gram top oint (Triple Antibiotic) Patient History Medical History (Updated 04/15/21 @ 15:34 by Shane Rene DO) CKD (chronic kidney disease) stage 3, GFR 30-59 ml/min 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 Mild cognitive impairment Prostate CA s/p brachytherapy Surgical History (Updated 04/16/21 @ 10:04 by Sobia Sears PA-C) History of appendectomy History of shoulder surgery b/l History of transcatheter aortic valve replacement (TAVR) 2015 Family History (Updated 04/15/21 @ 12:24 by Kacy Cat PA-C) Father COPD (chronic obstructive pulmonary disease) Mother Colorectal cancer Social History (Updated 04/15/21 @ 12:24 by Kacy Cat PA-C) Smoking Status: Never smoker Hx Alcohol Use: Yes Alcohol type: wine Alcohol Intake Frequency: 4 or More x per/Week Alcohol Intake Frequency Comment: daily, 8 oz per day Hx Substance Use: No Preferred Language: [place] Communication Ability: Effective [employer] Project Manager Required: No Beliefs That Will Affect Care: None marital status: Current Living Situation: Spouse Other Information That Helps Us Care for You: No Feels Safe at Home: Yes Safety Concerns: Feels Safe At This Time Assistive Devices: Glasses and Walker Review of Systems Review of Systems: Other (Limited due to underlying dementia?) Physical Exam Constitutional: WD/WN, vitals as above well nourished and + obese; no acute distress Neck: trachea midline, no thyromegaly + thick neck Respiratory: normal respiratory effort, lungs clear to auscultation Cardiovascular: Rate/Rhythm: regular rate and regular rhythm Heart Sounds: + murmur (II/ systolic murmur noted LSB) Vessels: no JVD Extremities: + edema (1+ edema b/l) Gastrointestinal (Abdomen): normal bowel sounds, soft, nontender, no hepatosplenomegaly Musculoskeletal: no cyanosis or clubbing, extremities motor strength 5/5 Skin: no rashes, warm and dry Neurologic: PERRL, EOMI, accommodation nl, no face palsy, no dysarthria Results & Data ([facility]) Vital Signs (Past 12 Hours) Vital Signs Temp Pulse Pulse Resp BP Pulse Ox 04/16/21 07:08 36.6 C 59 L 20 146/60 H 92 04/16/21 06:22 58 L 04/16/21 02:53 36.7 C 57 L 20 146/67 H 92 04/16/21 00:34 61 04/15/21 22:18 36.8 C 59 L 20 149/75 H 91 Laboratory Results 04/16/21 04/16/21 04/16/21 Range/Units 06:30 06:30 06:30 WBC (4.8-10.8) K/uL RBC (4.7-6.1) M/uL Hgb (14.0-18.0) g/dL Hct (42-52) % MCV (80-100) fL MCH (25-34) pg MCHC (32-36) g/dL RDW Std Deviation (36.4-46.3) fL RDW Coeff of [place] (11.5-14.5) % Plt Count (130-400) K/uL MPV (7.4-10.4) fL Immature Gran % (Auto) % Neut % (Auto) % Lymph % (Auto) % [place] % (Auto) % Eos % (Auto) % Baso % (Auto) % Neut # (Auto) (1.4-6.5) K/uL Lymph # (Auto) (1.2-3.4) K/uL [place] # (Auto) (0.11-0.59) K/uL Eos # (Auto) (0-0.5) K/uL Baso # (Auto) (0-0.2) K/uL Immature Gran # (Auto) (0.00-0.02) K/uL PT 24.6 H (9.0-12.0) Seconds INR 2.6 H (0.9-1.1) Sodium 140 (136-145) mmol/L Potassium 3.8 D (3.5-5.1) mmol/L Chloride 106 (98-107) mmol/L Carbon Dioxide 28 (21-32) mmol/L Anion Gap 5.0 (3-11) BUN 21 H (7-18) mg/dl Creatinine 1.27 (0.6-1.4) mg/dl Est Cr Clr Drug Dosing Not Reportable Est GFR ( Amer) 59.7 ml/min Est GFR (Non-Af Amer) 51.5 ml/min BUN/Creatinine Ratio 16.4 (10-20) Glucose 94 (70-99) mg/dl Estimat Average Glucose 105 mg/dl Hemoglobin A1c 5.3 (4.5-5.6) % Calcium 8.5 (8.5-10.1) mg/dl Magnesium 2.4 (1.8-2.4) mg/dl Total Bilirubin (0.2-1) mg/dl AST (15-37) U/L ALT (12-78) U/L Alkaline Phosphatase (45-117) U/L Total Creatine Kinase 620 H (39-308) U/L Troponin I (0-0.045) ng/ml NT-Pro-B Natriuret Pep (0-1800) pg/ml Total Protein (6.4-8.2) gm/dl Albumin (3.4-5.0) gm/dl Globulin (2.5-4.0) gm/dl Albumin/Globulin Ratio (0.9-2) Triglycerides 86 (0-150) mg/dl Cholesterol 161 (0-200) mg/dl LDL Cholesterol, Calc 96 mg/dl VLDL Cholesterol, Calc 17 mg/dl HDL Cholesterol 48 mg/dl Cholesterol/HDL Ratio 3 Lipase (73-393) U/L Urine Color Urine Appearance (Clear) Urine pH (4.5-7.5) Ur Specific [place] (1.000-1.030) Urine Protein (Negative) Urine Glucose (UA) (Negative) Urine Ketones (Negative) Urine Blood (Negative) Urine Nitrite (Negative) Urine Bilirubin (Negative) Urine Urobilinogen (Negative) Ur Leukocyte Esterase (Negative) COVID-19 Eval Order SARS-CoV-2 (PCR) (Negative) 04/16/21 04/15/21 04/15/21 Range/Units 06:30 19:50 13:49 WBC 7.25 (4.8-10.8) K/uL RBC 4.07 L (4.7-6.1) M/uL Hgb 12.1 L (14.0-18.0) g/dL Hct 37.3 L (42-52) % MCV 91.6 (80-100) fL MCH 29.7 (25-34) pg MCHC 32.4 (32-36) g/dL RDW Std Deviation 46.4 H (36.4-46.3) fL RDW Coeff of Porfir[place] 13.9 (11.5-14.5) % Plt Count 195 (130-400) K/uL MPV 10.3 (7.4-10.4) fL Immature Gran % (Auto) % Neut % (Auto) % Lymph % (Auto) % [place] % (Auto) % Eos % (Auto) % Baso % (Auto) % Neut # (Auto) (1.4-6.5) K/uL Lymph # (Auto) (1.2-3.4) K/uL [place] # (Auto) (0.11-0.59) K/uL Eos # (Auto) (0-0.5) K/uL Baso # (Auto) (0-0.2) K/uL Immature Gran # (Auto) (0.00-0.02) K/uL PT (9.0-12.0) Seconds INR (0.9-1.1) Sodium (136-145) mmol/L Potassium (3.5-5.1) mmol/L Chloride (98-107) mmol/L Carbon Dioxide (21-32) mmol/L Anion Gap (3-11) BUN (7-18) mg/dl Creatinine (0.6-1.4) mg/dl Est Cr Clr Drug Dosing Est GFR ( Amer) ml/min Est GFR (Non-Af Amer) ml/min BUN/Creatinine Ratio (10-20) Glucose (70-99) mg/dl Estimat Average Glucose mg/dl Hemoglobin A1c (4.5-5.6) % Calcium (8.5-10.1) mg/dl Magnesium (1.8-2.4) mg/dl Total Bilirubin (0.2-1) mg/dl AST (15-37) U/L ALT (12-78) U/L Alkaline Phosphatase (45-117) U/L Total Creatine Kinase 665 H (39-308) U/L Troponin I 0.048 H* 0.047 H* (0-0.045) ng/ml NT-Pro-B Natriuret Pep (0-1800) pg/ml Total Protein (6.4-8.2) gm/dl Albumin (3.4-5.0) gm/dl Globulin (2.5-4.0) gm/dl Albumin/Globulin Ratio (0.9-2) Triglycerides (0-150) mg/dl Cholesterol (0-200) mg/dl LDL Cholesterol, Calc mg/dl VLDL Cholesterol, Calc mg/dl HDL Cholesterol mg/dl Cholesterol/HDL Ratio Lipase (73-393) U/L Urine Color Urine Appearance (Clear) Urine pH (4.5-7.5) Ur Specific [place] (1.000-1.030) Urine Protein (Negative) Urine Glucose (UA) (Negative) Urine Ketones (Negative) Urine Blood (Negative) Urine Nitrite (Negative) Urine Bilirubin (Negative) Urine Urobilinogen (Negative) Ur Leukocyte Esterase (Negative) COVID-19 Eval Order SARS-CoV-2 (PCR) (Negative) 04/15/21 04/15/21 04/15/21 Range/Units 10:59 10:19 10:19 WBC (4.8-10.8) K/uL RBC (4.7-6.1) M/uL Hgb (14.0-18.0) g/dL Hct (42-52) % MCV (80-100) fL MCH (25-34) pg MCHC (32-36) g/dL RDW Std Deviation (36.4-46.3) fL RDW Coeff of Porfirio (11.5-14.5) % Plt Count (130-400) K/uL MPV (7.4-10.4) fL Immature Gran % (Auto) % Neut % (Auto) % Lymph % (Auto) % [place] % (Auto) % Eos % (Auto) % Baso % (Auto) % Neut # (Auto) (1.4-6.5) K/uL Lymph # (Auto) (1.2-3.4) K/uL [place] # (Auto) (0.11-0.59) K/uL Eos # (Auto) (0-0.5) K/uL Baso # (Auto) (0-0.2) K/uL Immature Gran # (Auto) (0.00-0.02) K/uL PT (9.0-12.0) Seconds INR (0.9-1.1) Sodium (136-145) mmol/L Potassium (3.5-5.1) mmol/L Chloride (98-107) mmol/L Carbon Dioxide (21-32) mmol/L Anion Gap (3-11) BUN (7-18) mg/dl Creatinine (0.6-1.4) mg/dl Est Cr Clr Drug Dosing Est GFR ( Amer) ml/min Est GFR (Non-Af Amer) ml/min BUN/Creatinine Ratio (10-20) Glucose (70-99) mg/dl Estimat Average Glucose mg/dl Hemoglobin A1c (4.5-5.6) % Calcium (8.5-10.1) mg/dl Magnesium (1.8-2.4) mg/dl Total Bilirubin (0.2-1) mg/dl AST (15-37) U/L ALT (12-78) U/L Alkaline Phosphatase (45-117) U/L Total Creatine Kinase (39-308) U/L Troponin I (0-0.045) ng/ml NT-Pro-B Natriuret Pep (0-1800) pg/ml Total Protein (6.4-8.2) gm/dl Albumin (3.4-5.0) gm/dl Globulin (2.5-4.0) gm/dl Albumin/Globulin Ratio (0.9-2) Triglycerides (0-150) mg/dl Cholesterol (0-200) mg/dl LDL Cholesterol, Calc mg/dl VLDL Cholesterol, Calc mg/dl HDL Cholesterol mg/dl Cholesterol/HDL Ratio Lipase (73-393) U/L Urine Color Dark Yellow Urine Appearance Clear (Clear) Urine pH 7.5 (4.5-7.5) Ur Specific [place] 1.015 (1.000-1.030) Urine Protein Negative (Negative) Urine Glucose (UA) Negative (Negative) Urine Ketones Negative (Negative) Urine Blood Negative (Negative) Urine Nitrite Negative (Negative) Urine Bilirubin Negative (Negative) Urine Urobilinogen Negative (Negative) Ur Leukocyte Esterase Negative (Negative) COVID-19 Eval Order Covid19 at [facility] SARS-CoV-2 (PCR) NEGATIVE (Negative) 04/15/21 04/15/21 04/15/21 Range/Units 09:15 09:15 09:15 WBC (4.8-10.8) K/uL RBC (4.7-6.1) M/uL Hgb (14.0-18.0) g/dL Hct (42-52) % MCV (80-100) fL MCH (25-34) pg MCHC (32-36) g/dL RDW Std Deviation (36.4-46.3) fL RDW Coeff of [place]fir[place] (11.5-14.5) % Plt Count (130-400) K/uL MPV (7.4-10.4) fL Immature Gran % (Auto) % Neut % (Auto) % Lymph % (Auto) % [place] % (Auto) % Eos % (Auto) % Baso % (Auto) % Neut # (Auto) (1.4-6.5) K/uL Lymph # (Auto) (1.2-3.4) K/uL [place] # (Auto) (0.11-0.59) K/uL Eos # (Auto) (0-0.5) K/uL Baso # (Auto) (0-0.2) K/uL Immature Gran # (Auto) (0.00-0.02) K/uL PT 25.6 H (9.0-12.0) Seconds INR 2.7 H (0.9-1.1) Sodium 139 (136-145) mmol/L Potassium 4.6 (3.5-5.1) mmol/L Chloride 104 (98-107) mmol/L Carbon Dioxide 32 (21-32) mmol/L Anion Gap 3.0 (3-11) BUN 22 H (7-18) mg/dl Creatinine 1.40 (0.6-1.4) mg/dl Est Cr Clr Drug Dosing Not Reportable Est GFR ( Amer) 53.1 ml/min Est GFR (Non-Af Amer) 45.8 ml/min BUN/Creatinine Ratio 15.4 (10-20) Glucose 103 H (70-99) mg/dl Estimat Average Glucose mg/dl Hemoglobin A1c (4.5-5.6) % Calcium 8.5 (8.5-10.1) mg/dl Magnesium (1.8-2.4) mg/dl Total Bilirubin 0.7 (0.2-1) mg/dl AST 32 (15-37) U/L ALT 26 (12-78) U/L Alkaline Phosphatase 54 (45-117) U/L Total Creatine Kinase (39-308) U/L Troponin I 0.073 H* (0-0.045) ng/ml NT-Pro-B Natriuret Pep 266 (0-1800) pg/ml Total Protein 6.2 L (6.4-8.2) gm/dl Albumin 3.2 L (3.4-5.0) gm/dl Globulin 3.0 (2.5-4.0) gm/dl Albumin/Globulin Ratio 1.1 (0.9-2) Triglycerides (0-150) mg/dl Cholesterol (0-200) mg/dl LDL Cholesterol, Calc mg/dl VLDL Cholesterol, Calc mg/dl HDL Cholesterol mg/dl Cholesterol/HDL Ratio Lipase 213 (73-393) U/L Urine Color Urine Appearance (Clear) Urine pH (4.5-7.5) Ur Specific [place] (1.000-1.030) Urine Protein (Negative) Urine Glucose (UA) (Negative) Urine Ketones (Negative) Urine Blood (Negative) Urine Nitrite (Negative) Urine Bilirubin (Negative) Urine Urobilinogen (Negative) Ur Leukocyte Esterase (Negative) COVID-19 Eval Order SARS-CoV-2 (PCR) (Negative) 04/15/21 Range/Units 09:15 WBC 8.86 (4.8-10.8) K/uL RBC 4.40 L (4.7-6.1) M/uL Hgb 13.3 L (14.0-18.0) g/dL Hct 41.3 L (42-52) % MCV 93.9 (80-100) fL MCH 30.2 (25-34) pg MCHC 32.2 (32-36) g/dL RDW Std Deviation 46.7 H (36.4-46.3) fL RDW Coeff of [place]fir[place] 13.6 (11.5-14.5) % Plt Count 208 (130-400) K/uL MPV 10.0 (7.4-10.4) fL Immature Gran % (Auto) 0.2 % Neut % (Auto) 67.4 % Lymph % (Auto) 20.3 % [place] % (Auto) 10.5 % Eos % (Auto) 1.5 % Baso % (Auto) 0.1 % Neut # (Auto) 5.97 (1.4-6.5) K/uL Lymph # (Auto) 1.80 (1.2-3.4) K/uL [place] # (Auto) 0.93 H (0.11-0.59) K/uL Eos # (Auto) 0.13 (0-0.5) K/uL Baso # (Auto) 0.01 (0-0.2) K/uL Immature Gran # (Auto) 0.02 (0.00-0.02) K/uL PT (9.0-12.0) Seconds INR (0.9-1.1) Sodium (136-145) mmol/L Potassium (3.5-5.1) mmol/L Chloride (98-107) mmol/L Carbon Dioxide (21-32) mmol/L Anion Gap (3-11) BUN (7-18) mg/dl Creatinine (0.6-1.4) mg/dl Est Cr Clr Drug Dosing Est GFR ( Amer) ml/min Est GFR (Non-Af Amer) ml/min BUN/Creatinine Ratio (10-20) Glucose (70-99) mg/dl Estimat Average Glucose mg/dl Hemoglobin A1c (4.5-5.6) % Calcium (8.5-10.1) mg/dl Magnesium (1.8-2.4) mg/dl Total Bilirubin (0.2-1) mg/dl AST (15-37) U/L ALT (12-78) U/L Alkaline Phosphatase (45-117) U/L Total Creatine Kinase (39-308) U/L Troponin I (0-0.045) ng/ml NT-Pro-B Natriuret Pep (0-1800) pg/ml Total Protein (6.4-8.2) gm/dl Albumin (3.4-5.0) gm/dl Globulin (2.5-4.0) gm/dl Albumin/Globulin Ratio (0.9-2) Triglycerides (0-150) mg/dl Cholesterol (0-200) mg/dl LDL Cholesterol, Calc mg/dl VLDL Cholesterol, Calc mg/dl HDL Cholesterol mg/dl Cholesterol/HDL Ratio Lipase (73-393) U/L Urine Color Urine Appearance (Clear) Urine pH (4.5-7.5) Ur Specific [place] (1.000-1.030) Urine Protein (Negative) Urine Glucose (UA) (Negative) Urine Ketones (Negative) Urine Blood (Negative) Urine Nitrite (Negative) Urine Bilirubin (Negative) Urine Urobilinogen (Negative) Ur Leukocyte Esterase (Negative) COVID-19 Eval Order SARS-CoV-2 (PCR) (Negative) Diagnostic Findings Echo results - Echo results reviewed dated 04/15/2021: Normal LV size and systolic function with ejection fraction 65 to 70%. No regional wall motion abnormalities. Severe concentric LVH. Mildly dilated RV with normal systolic function. Mild left atrial dilation. No significant valvular abnormalities. Normal estimated RV systolic pressure. Technically difficult study. No prior study for comparison Telemetry reviewed: sinus bradycardia in the mid 50's and NSR. No concerning arrhythmias EKG on admission Sinus bradycardia with 1st degree A-V block (underlying artifact noted) Low voltage QRS Possible old Septal infarct No prior EKG's for comparison Chest xray on admission - IMPRESSION: Mild cardiomegaly with no acute cardiopulmonary abnormality. Medications Administered Current Inpatient Medications Acetaminophen (Acetaminophen 325 Mg Tab) 650 mg PO TID [facility] Stop: 05/15/21 13:59 Last Admin: 04/16/21 07:57 Dose: 650 mg Documented by: Acetaminophen (Acetaminophen 325 Mg Tab) 650 mg PO Q4H PRN PRN Reason: Pain or Fever Stop: 05/15/21 17:02 Al Hydrox/Mg Hydrox/Simethicone (Aluminum/Magnesium Susp 30 Ml Udc) 15 ml PO Q4H PRN PRN Reason: Dyspepsia Stop: 05/15/21 17:02 Amlodipine Besylate (Amlodipine Besylate 5 Mg Tab) 5 mg PO PM [facility] Stop: 05/15/21 20:59 Last Admin: 04/15/21 20:12 Dose: 5 mg Documented by: Aspirin (Aspirin 81 Mg Ectab) 81 mg PO PM [facility] Stop: 05/15/21 20:59 Last Admin: 04/15/21 20:12 Dose: 81 mg Documented by: Furosemide (Furosemide 40 Mg Tab) 40 mg PO PM [facility] Stop: 05/16/21 20:59 Losartan Potassium (Losartan Potassium 25 Mg Tab) 25 mg PO PM [facility] Stop: 05/15/21 20:59 Last Admin: 04/15/21 20:12 Dose: 25 mg Documented by: Magnesium Hydroxide (Magnesium Hydroxide Susp 30 Ml Udc) 30 ml PO Q12H PRN PRN Reason: Constipation Stop: 05/15/21 17:02 Magnesium Oxide (Magnesium Oxide 400 Mg Tab) 250 mg PO DAILY@1000 [facility] Stop: 05/16/21 09:59 Last Admin: 04/16/21 07:58 Dose: 250 mg Documented by: Multivitamins (Multivitamin Tab) 1 tab PO PM [facility] Stop: 05/15/21 20:59 Last Admin: 04/15/21 20:12 Dose: 1 tab Documented by: Neomycin/Polymyxin/Bacitracin (Neomycin/Polymyx/Bacitr Oint 15 Gm Tube) 1 appln EXT BID [facility] Stop: 05/15/21 20:59 Last Admin: 04/16/21 07:58 Dose: 1 appln Documented by: Ondansetron HCl (Ondansetron Inj 2 Mg/Ml 2 Ml Vial) 4 mg IV Q6H PRN PRN Reason: Nausea Stop: 05/15/21 17:02 Polyethylene Glycol (Polyethylene (Miralax) 17 Gm Pack) 17 gm PO DAILY PRN PRN Reason: Constipation Stop: 05/15/21 17:02 Warfarin Sodium (Warfarin Sod 1.25 Mg Tab) 1.25 mg PO MOFR@1600 [facility] Stop: 05/17/21 15:59 Warfarin Sodium (Warfarin Sod 2.5 Mg Tab) 2.5 mg PO SUTUWETHSA@1600 [facility] Stop: 05/15/21 17:02 Last Admin: 04/15/21 18:19 Dose: 2.5 mg Documented by:
--- NOTE | 2021-04-16 08:59 | XCELERA ---
[id number]
[2021-04-16] MEDS ORDERED: NON-FORMULARY MEDICATION (Glucosamine-Chondroitin [Osteo Bi-Flex] 250-200 mg Tablet) PO SCH (09:00)
[2021-04-16] MEDS ORDERED: MAGNESIUM OXIDE 400 MG TAB PO SCH (10:00)
--- NOTE | 2021-04-16 12:45 | Electrocardiogram Report ---
Test Reason : Blood Pressure : / mmHG Vent. Rate : 049 BPM Atrial Rate : 049 BPM P-R Int : 246 ms QRS Dur : 066 ms QT Int : 472 ms P-R-T Axes : 060 043 052 degrees QTc Int : 426 ms Poor data quality, interpretation may be adversely affected Sinus bradycardia with 1st degree A-V block Low voltage QRS Septal infarct , age undetermined Abnormal ECG No previous ECGs available Confirmed by Janes Girard ([id number]) on 04/16/2021 12:45:00 PM Referred By: REFERRED SELF Confirmed By:Janes Girard
--- NOTE | 2021-04-16 13:40 | Hospitalist Progress Note ---
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 Pt is from [place], [place] and they are currently relocated back to [place], [place]. Will need to obtain records from PCP Dr. Jose J Coppola and Feather Bal[employer] Dr. Nba Lyon. Fall, mechanical Left hip pain Imaging does not reveal acute fractures PT/OT eval --PT recommends Home with HH Vs Rehab Patient, family not interested in rehab placement Fall precautions Plan to discharge home today Elevated troponin unknown baseline Denies anginal symptoms EEG not suggestive of acute ischemia Echo showed no wall motion abnormality Appreciate cardiology input HTN BP stable continue losartan and amlodipine monitor Chronic Diastolic CHF pro BNP WNL and CXR w/o pulm vasc congestion Monitor daily weights, strict I and O Resume home lasix detention use of warfarin pt and state 2/2 to TAVR? No past records available currently INR in therapeutic range Continue Coumadin Advised to follow-up with cardiology upon discharge Abrasion to b/l knee 2/2 to fall Local wound care CKD III unknown baseline Cr: 1.2 monitor Mild cognitive impairment pt alert to self and place states baseline, no formal dx of dementia DVT px: warfarin Disposition: Patient/Family refused acute rehab, Code Status FULL CODE Admission and Anticipated Discharge Date Admission Date: April 15, 2021 Subjective Patient is seen and examined bedside States feeling much better today Left leg pain is much improved No new complaints Family at bedside Patient, family refuses rehab placement Eager to get discharged Review of Systems Review of Systems: All systems reviewed & are unremarkable except as noted in Subjective Physical Exam Physical Exam: Physical Exam: Vitals signs as noted above General Appearance:Obese, no apparent distress Head: normocephalic, Atraumatic Eyes: normal inspection, EOMI Neck: supple, Trachea midline Respiratory/Chest: Normal breath sounds, CTA, No accessory muscle use Cardiovascular: S1, S2, No murmur Abdomen/GI:Soft, Non tender, Bowel sounds present Extremities/Musculoskeletal:normal inspection, Left thigh mild tender Neurologic/Psych:AAOX3, grossly no focal neurological deficits Skin: normal color, warm Results & Data Results & Data ([facility]) Vital Signs (Past 12 Hours) Vital Signs Temp Pulse Pulse Resp BP Pulse Ox 04/16/21 11:29 37.1 C 52 L 20 116/65 92 04/16/21 07:08 36.6 C 59 L 20 146/60 H 92 04/16/21 06:22 58 L 04/16/21 02:53 36.7 C 57 L 20 146/67 H 92 Laboratory Results Short CBC 04/16/21 Range/Units 06:30 WBC 7.25 (4.8-10.8) K/uL Hgb 12.1 L (14.0-18.0) g/dL Hct 37.3 L (42-52) % Plt Count 195 (130-400) K/uL BMP 04/16/21 06:30 Sodium 140 Potassium 3.8 D Chloride 106 Carbon Dioxide 28 BUN 21 H Creatinine 1.27 Glucose 94 Calcium 8.5 Cardiac Enzymes 04/15/21 04/15/21 04/16/21 Range/Units 13:49 19:50 06:30 Total Creatine Kinase 665 H 620 H (39-308) U/L Troponin I 0.047 H* 0.048 H* (0-0.045) ng/ml
--- NOTE | 2021-04-16 13:50 | Communication Note ---
Date of Service: April 16, 2021 By CMS guidelines, a determination that the admission or continued stay is not medically necessary has been made by a member of the UR committee and annmarie ponce for this hospital stay, therefore a Code 44 will be completed and the Inpatient admission will be changed to outpatient.
--- NOTE | 2021-04-16 13:51 | Discharge Summary ---
Date of Service April 16, 2021 Admission HPI Per Admitting Provider This is an 85-year-old male who has significant past medical history of TAVR, long-term anticoagulation with Coumadin, history of prostate cancer status post brachytherapy, hypertension who presents to ED after sustaining mechanical fall and having left hip pain x 1 day. His is at bedside. Of significance patient and reside mainly in [place], [place], but come back to [place] on occasion. Currently they are in the process of renovating a house and moving back to the [place] area permanently. Yesterday patient was taking the trash out and pulling the can down the driveway when he lost his footing and fell on his left side. provides most of history. She states it took approximately an hour and a half to get him back inside. He ended up falling on his hands and knees back to the carport. He since complained of left hip pain and also sustained abrasions to his left hand and bilateral knees. She had been using topical Neosporin for this. He has not been using anything [id number] for pain. He is having difficulty ambulating but was able to get from the living room chair to bed her last evening. opted to bring patient to ED due to left hip pain and lack of mobility. He did not hit his head or lose consciousness. It appears patient does have some underlying cognitive deficits, but history appears reliable. Up until yesterday's fall he has been in her normal state of health. He denies recent illness, fever, chills, sweats, lightheadedness, dizziness, syncope, chest pain, shortness of breath at rest, cough, hemoptysis, nausea, vomiting, abdominal pain. His appetite is otherwise been normal. He does have bilateral lower extremity swelling. states they use ALDO hose for this and he does take Lasix. He prefers to take Lasix at night despite requiring him to go to the bathroom. He has missed his Lasix on occasion. Patient denies prior history of heart failure. In ED he remained hemodynamically stable. He underwent imaging to hip and pelvis which was negative for acute fracture. Head CT was negative for acute abnormality. His CBC and CMP were generally unremarkable except for BUN 22, creatinine 1.4, glucose 103, elevated troponin 0.073. His urinalysis was negative and proBNP was WNL. His H&H was stable at 13.3 and 41.3. Admission Exam Per Admitting Provider Physical Exam Physical Exam: Constitutional: WD/WN, Eld[place], M, hard of hearing, alert to self and place only, vitals as above, NAD, sitting up in bed, pleasant, conversing easily Head: Normocephalic, Atraumatic Eyes: PERRL, conjunctivae normal, anicteric sclerae ENMT: external ear and nose normal, oropharynx normal Neck: trachea midline, no thyromegaly normal visual inspection Respiratory: normal respiratory effort, lungs clear to auscultation, no wheeze, rales, rhonchi. Normal insp/exp effort, no accessory muscle use Cardiovascular: bradycardic rate, reg rhythm, +2 lower ext edema, no murmur Vessels: no JVD or carotid bruit Chest: normal inspection of chest Abdomen: normal bowel sounds, soft, nontender, no hepatosplenomegaly Musculoskeletal: no cyanosis or clubbing, extremities AROM x 4, pain to palp L lateral thigh, strength 4/5 Skin: no rashes, warm and dry normal turgor Neurologic: PERRL, EOMI, accommodation nl, no face palsy, no dysarthria CN's II-XI intact bilaterally and moves all extremities Psychiatric: A+Ox2 to self and place, not oriented to year/date, president, euthymic affect Lymphatic: no cervical or axillary lymphadenopathy : deferred denies Principal Diagnosis Mechanical fall Left hip pain Discharge Data Allergies Allergy/AdvReac Type Severity Reaction Status Date / Time No Known Allergies Allergy Unverified 04/15/21 11:44 Consultations 04/15/21 10:56 ED Decision to Admit Stat 04/15/21 12:42 Consult Cardiology Routine Consult Health Information Management Routine Ordered Studies 04/15/21 09:15 CT head/brain wo con Stat 04/15/21 15:03 US renal/blad retro comp Stat Hospital Course (1) Fall: (2) Left hip pain: (3) Elevated troponin: (4) HTN (hypertension): (5) FDC (current) use of anticoagulants: (6) CKD (chronic kidney disease) stage 3, GFR 30-59 ml/min: (7) Lower extremity edema: Patient is an 85 yr male with H/O TAVR, long-term anticoagulation with Coumadin, history of prostate cancer status post brachytherapy, hypertension who presents to ED after sustaining mechanical fall and having left hip pain x 1 day. Pt is from [place], [place] and they are currently relocated back to [place], [place]. Will need to obtain records from PCP Dr. Jose J Coppola and Pre [employer] Dr. Nba Lyon. Fall, mechanical Left hip pain Imaging does not reveal acute fractures PT/OT eval --PT recommends Home with HH Vs Rehab Patient, family not interested in rehab placement Fall precautions Plan to discharge home today Elevated troponin unknown baseline Denies anginal symptoms EEG not suggestive of acute ischemia Echo showed no wall motion abnormality Appreciate cardiology input HTN BP stable continue losartan and amlodipine monitor Chronic Diastolic CHF pro BNP WNL and CXR w/o pulm vasc congestion Monitor daily weights, strict I and O Resume home lasix FDC use of warfarin pt and state / to TAVR? No past records available currently INR in therapeutic range Continue Coumadin Advised to follow-up with cardiology upon discharge Abrasion to b/l knee 07/29 to fall Local wound care CKD III unknown baseline Cr: 1.2 monitor Mild cognitive impairment pt alert to self and place states baseline, no formal dx of dementia DVT px: warfarin Disposition: Patient/Family refused acute rehab, HH Code Status FULL CODE Total Time Total Time Spent Total Time Spent (In Minutes): 40 minutes Discharge Plan Discharge Items Patient Disposition: Home - Self-Care Reason For Visit: FALL, R HIP PAIN, ELEVATED TROP Discharge Diagnosis: Mechanical fall Left hip pain Activity: Per Instructions section Exercise/Sports: Wait until after follow-up appointment Non-emergency contact: Primary Care Provider and Pre Sales Network Engineer Call non-emergency contact if: you have any medication questions, your symptoms worsen, your pain is not controlled, your pain is concerning for you and you have a fever Follow-up/Referrals: Milena Reardon MD [Physician] - 04/21/21 10:20 am (Date & Time 04/21/2021 10:20 AM Provider Milena Garner MD Department General Internal Medicine [address] [facility], [place] [address] ) Diet: Heart Healthy and Low Sodium (2gm) Addtl Attending Provider Instructions: Follow-up with your primary care physician on 04/21/2021 10:20 AM Follow-up with your virologist in 1 to 2 weeks Seek immediate medical attention if your symptoms reoccur or worsen Please take all medications as instructed on discharge list below. Please call if you have any questions or problems. You can reach a [facility] hospitalist on duty at [facility] 24 hours a day by calling [phone] Pending Studies at Discharge: No Stand-Alone Forms: My [facility], Smoking Cessation Medications and DC Order Prescriptions: New Triple Antibiotic 3.5mg-400 unit- 5,000 unit/gram Ointment 1 applic EXT BID Qty: 1 RF: 0 Continued furosemide 40 mg Tablet 40 mg PO PM RF: 0 warfarin 2.5 mg Tablet 1.25 mg PO MOFR@1600 RF: 0 amlodipine 5 mg Tablet 5 mg PO PM RF: 0 aspirin 81 mg Tablet,Delayed Release (Dr/Ec) 81 mg PO PM RF: 0 losartan 25 mg Tablet 25 mg PO PM RF: 0 magnesium 250 mg Tablet 250 mg PO DAILY RF: 0 glucosamine-chondroitin [Osteo Bi-Flex] 250-200 mg Tablet 2 tab PO DAILY RF: 0 Centrum Silver Men 300-600-300 mcg Tablet 1 tab PO PM RF: 0 warfarin 2.5 mg Tablet 2.5 mg PO SUTUWETHSA@1600 RF: 0 Discharge Orders: Discharge Order (Routine); Ordered 04/16/21 Ordered By: Jeff Faith Admission Data Admit Date/Time: 04/15/21 11:00 Attending Provider: Jeff Faith Admit Provider: Jeff Faith Primary Care Provider: Jose J Coppola Other Providers: Jeff Faith ; Pranay Islas Other Interventions: Discharge Summary Assessment (RN) Last Done: 04/16/21 14:50
[2021-04-16] MEDS: WARFARIN SOD 2.5 MG TAB PO SCH (16:07)
[2021-04-16] MEDS ORDERED: FUROSEMIDE 40 MG TAB PO SCH (21:00)
[2021-04-17] MEDS ORDERED: WARFARIN SOD 1.25 MG TAB PO SCH (16:00)
--- NOTE | 2021-04-18 09:28 | Communication Note ---
Date of Service: April 18, 2021 By CMS guidelines, a determination that the admission or continued stay is not medically necessary has been made by a member of the Utilization Review co mmittee and a physician for this hospital stay. Therefore, a Code 44 will be completed and the inpatient admission will be changed to outpatient. DO ANASTASIIA Maravilla Physician member
== END 2021-04-16 17:46 | disposition home or self-care (01) | DRG 556 ==
LOC: ED 09:05 → EDINP 11:00 → INTOOBSV 11:00 → 2N 16:07

== ENCOUNTER 2021-04-26 09:10 | Inpatient (IN) ==
[2021-04-26 09:38] LABS: Basophils # (auto) 0.01 K/uL (0-0.2); Basophils % (auto) 0.1 %; Hematocrit (blood only) 38.4 % (42-52); Hemoglobin 12.7 g/dL (14.0-18.0); Immature Granulocytes # (auto) 0.05 K/uL (0.00-0.02); Immature Granulocytes % (auto) 0.7 %; Lymphocytes # (auto) 0.42 K/uL (1.2-3.4); Lymphocytes % (auto) 6.1 %; Mean Corpuscular Hemoglobin 30.3 pg (25-34); Mean Corpuscular Hgb Conc 33.1 g/dL (32-36); Mean Corpuscular Volume 91.6 fL (80-100); Mean Platelet Volume 9.3 fL (7.4-10.4); Monocytes # (auto) 0.39 K/uL (0.11-0.59); Monocytes % (auto) 5.7 %; Neutrophils # (auto) 5.96 K/uL (1.4-6.5); Neutrophils % (auto) 87.4 %; Platelet Count 255 K/uL (130-400); RDW Coefficient of Variation 13.8 % (11.5-14.5); RDW Standard Deviation 46.1 fL (36.4-46.3); Red Blood Count 4.19 M/uL (4.7-6.1); White Blood Count 6.83 K/uL (4.8-10.8)
[2021-04-26 09:46] LABS: BUN Creatinine Ratio 15.6 (10-20); Calcium 8.9 mg/dl (8.5-10.1); Creatinine Clr Calc Pharmacy 37.6 ml/min; Est GFR (African American) 45.2 ml/min; Potassium 4.3 mmol/L (3.5-5.1)
[2021-04-26 09:56] LABS: Troponin I 0.133 ng/ml (0-0.045)
[2021-04-26] MEDS ORDERED: SODIUM CHLORIDE 0.9% 1000ML 1,000 ML IV ONE (09:57)
--- NOTE | 2021-04-26 10:00 | XRay Report ---
XR chest 1V portable CLINICAL HISTORY: Respiratory Distress TECHNIQUE: Single frontal radiograph of the chest was obtained. Comparison: Comparison is made to chest one view 04/15/2021 FINDINGS: No lines and tubes are seen. The cardiomediastinal silhouette is stable. Scattered calcified granulom yennifer are seen. Lungs are underinflated and the densities are seen in the right lower lung likely repre senting atelectasis. No evidence of pleural effusion or pneumothorax. Bilateral degenerative changes in the shoulder are noted. IMPRESSION: Atelectasis without acute abnormality. Stable cardiomegaly. ACT 112: Negative or not required by law. Electronically signed by: Matthias Marquez M.D. 04/26/2021 9:59 AM
[2021-04-26] MEDS ORDERED: ONDANSETRON INJ 2 MG/ML 2 ML VIAL IV STA (10:56)
[2021-04-26] MEDS ORDERED: SODIUM CHLORIDE 0.9% 250 ML IV PRN (10:56)
--- NOTE | 2021-04-26 11:14 | Emergency Department Note ---
History of Present Illness General Chief complaint: Illness Stated complaint: FALL, WEAK Time Seen by Provider: 04/26/21 09:54 History of Present Illness Maximum Pain Intensity: 5 85-year-old male presents to the ED with a chief complaint of fever and chills, some mild confusion, weakness and a cough and some wheezing. The patient was found on the floor by EMS this morning. He was on the floor for about an hour. The lives with the patient. She states that he was placed on Keflex about 3 or 4 days ago for a left elbow redness. He has been weak for the past 2 days. He was trying to get up off the floor and has some abrasions to his knees. He was unable to get up on his own. He was noted to have a fever of 39.6. His O2 saturations were 86% on room air here. He does not wear home oxygen. He is on warfarin chronically for his aortic valve replacement. He has had Covid vaccines. Home Medications Medication Instructions Recorded Confirmed Type amlodipine 5 mg tablet 5 mg PO PM 04/15/21 04/26/21 History aspirin 81 mg tablet,delayed 81 mg PO PM 04/15/21 04/26/21 History release furosemide 40 mg tablet 40 mg PO QAM 04/15/21 04/26/21 History glucosamine-chondroitin 250 mg-200 2 tab PO DAILY 04/15/21 04/26/21 History mg tablet (Osteo Bi-Flex) losartan 25 mg tablet 25 mg PO PM 04/15/21 04/26/21 History magnesium 250 mg tablet 250 mg PO DAILY 04/15/21 04/26/21 History hbirqeea-plo-bmkcp acid 300 1 tab PO PM 04/15/21 04/26/21 History mcg-lycopene 600 mcg-lutein 300 mcg tablet (Centrum Silver Men) warfarin 2.5 mg tablet 1.25 mg PO MOFR@1600 04/15/21 04/26/21 History warfarin 2.5 mg tablet 2.5 mg PO SUTUWETHSA@1600 04/15/21 04/26/21 History neomycin-bacitracn Zn-polymyx 3.5 1 applic EXT BID #1 tube 04/16/21 04/26/21 Rx mg-400 unit-5,000 unit/gram top oint (Triple Antibiotic) cephalexin 500 mg capsule 500 mg PO TID 04/26/21 04/26/21 History vitamin B complex 1 tab PO DAILY 04/26/21 04/26/21 History Allergies Allergy/AdvReac Type Severity Reaction Status Date / Time No Known Allergies Allergy Unverified 04/26/21 10:40 Past Med/Surg History Medical History CKD (chronic kidney disease) stage 3, GFR 30-59 ml/min HTN (hypertension) USP (current) use of anticoagulants Mild cognitive impairment Prostate CA s/p brachytherapy Surgical History History of appendectomy History of shoulder surgery b/l History of transcatheter aortic valve replacement (TAVR) 2015 Family History Father COPD (chronic obstructive pulmonary disease) Mother Colorectal cancer Social History Smoking Status: Never smoker Hx Alcohol Use: Yes Alcohol type: wine Alcohol Intake Frequency: 4 or More x per/Week Alcohol Intake Frequency Comment: daily, 8 oz per day Hx Substance Use: No Preferred Language: Latvian Communication Ability: Effective 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 Beliefs That Will Affect Care: None marital status: Current Living Situation: Spouse Feels Safe at Home: Yes Assistive Devices: Glasses and Walker Review of Systems A total of 10 systems reviewed and were otherwise negative Physical Exam Vital Signs Vital Signs - 24 hr 04/26/21 09:23 04/26/21 09:28 04/26/21 11:45 Temperature 39.6 C H Temperature Source Oral Pulse Rate 70 76 Pulse Rate [Left Finger] 60 Pulse Rhythm Regular Regular Pulse Strength Normal Respiratory Rate 26 H 24 21 Respiratory Effort / Characteristics Grunting Labored Respiratory Pattern Regular Blood Pressure 136/68 Blood Pressure [Left Arm] 125/59 L Blood Pressure Mean 90 Blood Pressure Mean [Left Arm] 81 Blood Pressure Position Sitting Blood Pressure Position [Left Arm] Sitting Pulse Oximetry 86 L 94 97 Oxygen Delivery Method Room Air Nasal Cannula Nasal Cannula Oxygen Flow Rate 4 4 Sepsis Recent Fever Within 48 Hours No Sepsis New/Unexplained Change in Mental Status No Sepsis Action Taken by Nursing No Action Required 04/26/21 12:20 Temperature Temperature Source Pulse Rate 56 L Pulse Rate [Left Finger] Pulse Rhythm Pulse Strength Respiratory Rate 21 Respiratory Effort / Characteristics Respiratory Pattern Blood Pressure 117/54 L Blood Pressure [Left Arm] Blood Pressure Mean 75 Blood Pressure Mean [Left Arm] Blood Pressure Position Blood Pressure Position [Left Arm] Pulse Oximetry 96 Oxygen Delivery Method Oxygen Flow Rate Sepsis Recent Fever Within 48 Hours Sepsis New/Unexplained Change in Mental Status Sepsis Action Taken by Nursing CONSTITUTIONAL/VITAL SIGNS: Reviewed / noted above. GENERAL: Non-toxic in appearance. INTEGUMENTARY: Warm, dry, and Leigh. HEAD: Normocephalic. EYES: without scleral icterus or trauma. ENT/OROPHARYNX: clear and moist. LYMPHADENOPATHY/NECK: Is supple without lymphadenopathy or meningismus. RESPIRATORY: Diminished with some mild wheezing bilaterally that appears to be coming from the upper airways. Mild increased work of breathing. CARDIOVASCULAR: Regular rate and rhythm. GI/ABDOMEN: Soft and nontender. No organomegaly or pulsatile mass. EXTREMITIES: Warm and well perfused. Some mild abrasions to the bilateral knees from him trying to get up off the floor. There is a small amount of redness in the left elbow area that is better than it was according to the . NEUROLOGICAL: Intact without focal deficits. PSYCHIATRIC: normal affect. MUSCULOSKELETAL: Normally developed with good muscle tone. TRIAGE NURSING DOCUMENTATION REVIEWED. Course Administered Medications Remdesivir 200 mg/ Sodium (Chloride) 250 mls @ 125 mls/hr IV ONE STA; Protocol Stop: 04/26/21 13:28 Last Admin: 04/26/21 12:19 Dose: 125 mls/hr Documented by: [id number] Discontinued Medications Sodium Chloride (Nss 1000ml) 1,000 mls @ 999 mls/hr IV .Q1H1M ONE Stop: 04/26/21 10:57 Last Admin: 04/26/21 10:14 Dose: 999 mls/hr Documented by: [id number] Dexamethasone 6 mg/ Syringe 1.5 mls @ 1 mls/min IV ONCE ONE Stop: 04/26/21 11:31 Last Admin: 04/26/21 12:17 Dose: 1 mls/min Documented by: [id number] Ondansetron HCl (Ondansetron Inj 2 Mg/Ml 2 Ml Vial) 4 mg IV NOW STA Stop: 04/26/21 10:57 Last Admin: 04/26/21 12:20 Dose: Not Given Documented by: [id number] Critical Care Time Critical Care Time: Yes Total Critical Care Time: 30 I have personally spent 30 minutes of critical care time in the direct management of this patient. This includes bedside care, interpretation of diagnostic studies, and testing, discussion with consultants, patient, and family members, and other required patient management activities. This 30 minutes is in excess of all separately billable procedures. Medical Decision Making Medical Records Attestation: I reviewed the patient's medical records. Home Medications Current Medication List: was personally reviewed by me Laboratory Data Attestation: I reviewed the patient's lab results. Result diagrams: 04/26/21 09:20 04/26/21 09:20 Lab Results 04/26/21 04/26/21 04/26/21 Range/Units 09:20 09:20 09:20 WBC 6.83 (4.8-10.8) K/uL RBC 4.19 L (4.7-6.1) M/uL Hgb 12.7 L (14.0-18.0) g/dL Hct 38.4 L (42-52) % MCV 91.6 (80-100) fL MCH 30.3 (25-34) pg MCHC 33.1 (32-36) g/dL RDW Std Deviation 46.1 (36.4-46.3) fL RDW Coeff of Porfirio 13.8 (11.5-14.5) % Plt Count 255 (130-400) K/uL MPV 9.3 (7.4-10.4) fL Immature Gran % (Auto) 0.7 % Neut % (Auto) 87.4 % Lymph % (Auto) 6.1 % Rusk % (Auto) 5.7 % Eos % (Auto) 0.0 % Baso % (Auto) 0.1 % Neut # (Auto) 5.96 (1.4-6.5) K/uL Lymph # (Auto) 0.42 L (1.2-3.4) K/uL Rusk # (Auto) 0.39 (0.11-0.59) K/uL Eos # (Auto) 0.00 (0-0.5) K/uL Baso # (Auto) 0.01 (0-0.2) K/uL Immature Gran # (Auto) 0.05 H (0.00-0.02) K/uL PT 16.4 H (9.0-12.0) Seconds INR 1.7 H (0.9-1.1) Sodium 135 L (136-145) mmol/L Potassium 4.3 (3.5-5.1) mmol/L Chloride 102 (98-107) mmol/L Carbon Dioxide 25 (21-32) mmol/L Anion Gap 8.0 (3-11) BUN 25 H (7-18) mg/dl Creatinine 1.60 H (0.6-1.4) mg/dl Est Cr Clr Drug Dosing 37.6 ml/min Est GFR ( Amer) 45.2 ml/min Est GFR (Non-Af Amer) 39.0 ml/min BUN/Creatinine Ratio 15.6 (10-20) Glucose 126 H (70-99) mg/dl Lactate (0.4-2.0) mmol/L Calcium 8.9 (8.5-10.1) mg/dl Troponin I 0.133 H* (0-0.045) ng/ml Adenovirus (PCR) (NotDetected) B. pertussis DNA (PCR) (NotDetected) B.parapertussis DNA PCR (NotDetected) C. pneumoniae DNA (PCR) (NotDetected) Coronavirus OC43 (PCR) (NotDetected) Coronavirus HKU1 (PCR) (NotDetected) Coronavirus 229E (PCR) (NotDetected) COVID-19 Eval Order SARS-CoV-2 (PCR) (NotDetected) Coronavirus NL63 (PCR) (NotDetected) Human Metapneumovir PCR (NotDetected) Influenza Type A (PCR) (NotDetected) Influenza Type B (PCR) (NotDetected) M. pneumoniae (PCR) (NotDetected) Parainfluenza 1 (PCR) (NotDetected) Parainfluenza 2 (PCR) (NotDetected) Parainfluenza 3 (PCR) (NotDetected) Parainfluenza 4 (PCR) (NotDetected) RSV (PCR) (NotDetected) Entero/Rhino (PCR) (NotDetected) Blood Type Antibody Screen Crossmatch 04/26/21 04/26/21 04/26/21 Range/Units 10:11 10:11 10:11 WBC (4.8-10.8) K/uL RBC (4.7-6.1) M/uL Hgb (14.0-18.0) g/dL Hct (42-52) % MCV (80-100) fL MCH (25-34) pg MCHC (32-36) g/dL RDW Std Deviation (36.4-46.3) fL RDW Coeff of Porfirio (11.5-14.5) % Plt Count (130-400) K/uL MPV (7.4-10.4) fL Immature Gran % (Auto) % Neut % (Auto) % Lymph % (Auto) % Rusk % (Auto) % Eos % (Auto) % Baso % (Auto) % Neut # (Auto) (1.4-6.5) K/uL Lymph # (Auto) (1.2-3.4) K/uL Rusk # (Auto) (0.11-0.59) K/uL Eos # (Auto) (0-0.5) K/uL Baso # (Auto) (0-0.2) K/uL Immature Gran # (Auto) (0.00-0.02) K/uL PT (9.0-12.0) Seconds INR (0.9-1.1) Sodium (136-145) mmol/L Potassium (3.5-5.1) mmol/L Chloride (98-107) mmol/L Carbon Dioxide (21-32) mmol/L Anion Gap (3-11) BUN (7-18) mg/dl Creatinine (0.6-1.4) mg/dl Est Cr Clr Drug Dosing ml/min Est GFR ( Amer) ml/min Est GFR (Non-Af Amer) ml/min BUN/Creatinine Ratio (10-20) Glucose (70-99) mg/dl Lactate 1.3 (0.4-2.0) mmol/L Calcium (8.5-10.1) mg/dl Troponin I (0-0.045) ng/ml Adenovirus (PCR) Not Detected (NotDetected) B. pertussis DNA (PCR) Not Detected (NotDetected) B.parapertussis DNA PCR Not Detected (NotDetected) C. pneumoniae DNA (PCR) Not Detected (NotDetected) Coronavirus OC43 (PCR) Not Detected (NotDetected) Coronavirus HKU1 (PCR) Not Detected (NotDetected) Coronavirus 229E (PCR) Not Detected (NotDetected) COVID-19 Eval Order [facility] at [facility] SARS-CoV-2 (PCR) DETECTED A* (NotDetected) Coronavirus NL63 (PCR) Not Detected (NotDetected) Human Metapneumovir PCR Not Detected (NotDetected) Influenza Type A (PCR) Not Detected (NotDetected) Influenza Type B (PCR) Not Detected (NotDetected) M. pneumoniae (PCR) Not Detected (NotDetected) Parainfluenza 1 (PCR) Not Detected (NotDetected) Parainfluenza 2 (PCR) Not Detected (NotDetected) Parainfluenza 3 (PCR) Not Detected (NotDetected) Parainfluenza 4 (PCR) Not Detected (NotDetected) RSV (PCR) Not Detected (NotDetected) Entero/Rhino (PCR) Not Detected (NotDetected) Blood Type Antibody Screen Crossmatch 04/26/21 Range/Units 11:15 WBC (4.8-10.8) K/uL RBC (4.7-6.1) M/uL Hgb (14.0-18.0) g/dL Hct (42-52) % MCV (80-100) fL MCH (25-34) pg MCHC (32-36) g/dL RDW Std Deviation (36.4-46.3) fL RDW Coeff of Porfirio (11.5-14.5) % Plt Count (130-400) K/uL MPV (7.4-10.4) fL Immature Gran % (Auto) % Neut % (Auto) % Lymph % (Auto) % Rusk % (Auto) % Eos % (Auto) % Baso % (Auto) % Neut # (Auto) (1.4-6.5) K/uL Lymph # (Auto) (1.2-3.4) K/uL Rusk # (Auto) (0.11-0.59) K/uL Eos # (Auto) (0-0.5) K/uL Baso # (Auto) (0-0.2) K/uL Immature Gran # (Auto) (0.00-0.02) K/uL PT (9.0-12.0) Seconds INR (0.9-1.1) Sodium (136-145) mmol/L Potassium (3.5-5.1) mmol/L Chloride (98-107) mmol/L Carbon Dioxide (21-32) mmol/L Anion Gap (3-11) BUN (7-18) mg/dl Creatinine (0.6-1.4) mg/dl Est Cr Clr Drug Dosing ml/min Est GFR ( Amer) ml/min Est GFR (Non-Af Amer) ml/min BUN/Creatinine Ratio (10-20) Glucose (70-99) mg/dl Lactate (0.4-2.0) mmol/L Calcium (8.5-10.1) mg/dl Troponin I (0-0.045) ng/ml Adenovirus (PCR) (NotDetected) B. pertussis DNA (PCR) (NotDetected) B.parapertussis DNA PCR (NotDetected) C. pneumoniae DNA (PCR) (NotDetected) Coronavirus OC43 (PCR) (NotDetected) Coronavirus HKU1 (PCR) (NotDetected) Coronavirus 229E (PCR) (NotDetected) COVID-19 Eval Order SARS-CoV-2 (PCR) (NotDetected) Coronavirus NL63 (PCR) (NotDetected) Human Metapneumovir PCR (NotDetected) Influenza Type A (PCR) (NotDetected) Influenza Type B (PCR) (NotDetected) M. pneumoniae (PCR) (NotDetected) Parainfluenza 1 (PCR) (NotDetected) Parainfluenza 2 (PCR) (NotDetected) Parainfluenza 3 (PCR) (NotDetected) Parainfluenza 4 (PCR) (NotDetected) RSV (PCR) (NotDetected) Entero/Rhino (PCR) (NotDetected) Blood Type Cancelled Antibody Screen Cancelled Crossmatch See Detail Imaging Data Radiologist's Impression: Chest X-Ray 04/26/21 09:31 XR chest 1V portable CLINICAL HISTORY: Respiratory Distress TECHNIQUE: Single frontal radiograph of the chest was obtained. Comparison: Comparison is made to chest one view 04/15/2021 FINDINGS: No lines and tubes are seen. The cardiomediastinal silhouette is stable. Scattered calcified granulomata are seen. Lungs are underinflated and the densities are seen in the right lower lung likely representing atelectasis. No evidence of pleural effusion or pneumothorax. Bilateral degenerative changes in the shoulder are noted. IMPRESSION: Atelectasis without acute abnormality. Stable cardiomegaly. ACT 112: Negative or not required by law. Electronically signed by: Matthias Marquez M.D. 04/26/2021 9:59 AM ECG Data Attestation: I personally reviewed and interpreted this ECG as follows: Additional Comments: Twelve-lead EKG: Per my interpretation there is normal sinus rhythm at a rate of 70. No ST elevation. No PVCs. Normal QTC. MDM Narrative Patient presents hypoxic and febrile with a history of recent fevers, chills, confusion, cough and wheezing. The patient had original temperature here of 39.6. Blood pressure and vital signs are stable. He did have oxygen saturations of 86% on room air. 96% on 4 L. His chest x-ray was negative for acute disease. CBC is unremarkable. BUN is 25 and creatinine is 1.6. Troponin is elevated 0.133. This has been elevated in the past. EKG shows a normal sinus rhythm at 70. Covid test is positive. The patient will be admitted for further inpatient evaluation and care. He was given IV Decadron here. He was also given some IV Zofran and IV remdesivir. He was given some IV fluids. Impression & Plan COVID, Hypoxia, JIMI (acute kidney injury) Discharge Plan Visit Data Chief Complaint: Illness Stated Complaint: FALL, WEAK ED Provider: Tal Everett Discharge Problem: COVID, Hypoxia, JIMI (acute kidney injury) Patient Disposition: Admitted As Inpatient Forms Stand Alone Forms: My [facility], Virtual Emergency Department, Important Visit Information Prescriptions Prescriptions: No Action furosemide 40 mg Tablet 40 mg PO QAM RF: 0 warfarin 2.5 mg Tablet 1.25 mg PO MOFR@1600 RF: 0 amlodipine 5 mg Tablet 5 mg PO PM RF: 0 aspirin 81 mg Tablet,Delayed Release (Dr/Ec) 81 mg PO PM RF: 0 losartan 25 mg Tablet 25 mg PO PM RF: 0 magnesium 250 mg Tablet 250 mg PO DAILY RF: 0 glucosamine-chondroitin [Osteo Bi-Flex] 250-200 mg Tablet 2 tab PO DAILY RF: 0 Centrum Silver Men 300-600-300 mcg Tablet 1 tab PO PM RF: 0 warfarin 2.5 mg Tablet 2.5 mg PO SUTUWETHSA@1600 RF: 0 Triple Antibiotic 3.5mg-400 unit- 5,000 unit/gram Ointment 1 applic EXT BID Qty: 1 RF: 0 cephalexin [Keflex] 500 mg Capsule 500 mg PO TID RF: 0 vitamin B complex Tablet 1 tab PO DAILY RF: 0 Referrals Referrals: Jose J Coppola MD [Primary Care Provider] -
[2021-04-26 11:23] LABS: Adenovirus PCR Not Detected (NotDetected); Bordetella parapertussis PCR Not Detected (NotDetected); Bordetella pertussis PCR Not Detected (NotDetected); Chlamydia pneumoniae PCR Not Detected (NotDetected); Coronavirus 229E PCR Not Detected (NotDetected); Coronavirus HKU1 PCR Not Detected (NotDetected); Coronavirus NL63 PCR Not Detected (NotDetected); Coronavirus OC43PCR Not Detected (NotDetected); Human Metapneumovirus PCR Not Detected (NotDetected); Influenza A PCR Not Detected (NotDetected); Influenza B PCR Not Detected (NotDetected); Mycoplasma pneumoniae PCR Not Detected (NotDetected); Parainfluenza Virus 1 PCR Not Detected (NotDetected); Parainfluenza Virus 2 PCR Not Detected (NotDetected); Parainfluenza Virus 3 PCR Not Detected (NotDetected); Parainfluenza Virus 4 PCR Not Detected (NotDetected); Respiratory Syncytial VirusPCR Not Detected (NotDetected); Rhinovirus/Enterovirus PCR Not Detected (NotDetected)
[2021-04-26 11:27] LABS: Coronavirus CoV-2 (COVID19)PCR DETECTED (NotDetected)
[2021-04-26] MEDS ORDERED: REMDESIVIR 200 MG in SODIUM CHLORIDE 0.9% 210 ML IV STA (11:29)
[2021-04-26 11:30] LABS: INR 1.7 (0.9-1.1); Prothrombin Time 16.4 Seconds (9.0-12.0)
[2021-04-26] MEDS ORDERED: dexAMETHasone 6 MG in SYRINGE 0 ML IV ONE (11:30)
[2021-04-26] MEDS ORDERED: SODIUM CHLORIDE 0.9% 10ML FLUSH IV SCH (11:30)
[2021-04-26 14:29] LABS: D Dimer 18630 ug/L FEU (0-500)
[2021-04-26] MEDS ORDERED: FUROSEMIDE INJ 20 MG/2 ML VIAL IV ONE ×2 (15:11→17:41)
[2021-04-26 15:34] LABS: Albumin Level 3.1 gm/dl (3.4-5.0); Bilirubin Direct 0.2 mg/dl (0-0.2); Bilirubin,Total 0.9 mg/dl (0.2-1); Total Protein 6.4 gm/dl (6.4-8.2)
[2021-04-26] MEDS ORDERED: ACETAMINOPHEN 325 MG TAB PO PRN (15:55)
--- NOTE | 2021-04-26 16:03 | History & Physical Report ---
Date of Service April 26, 2021 Assessment & Plan (1) Acute respiratory failure with hypoxia: (2) Pneumonia due to COVID-19 virus: Plan: -Admit to [facility] -Patient presenting from home after a fall. Patient recently admitted to [facility] 04/15 through 04/16 after a fall and sustaining a left hip hematoma. -In the ED, patient found to be hypoxic on room air at 86%, febrile 39.6.Patient tested positive for COVID-19. Per , patient received Pfizer doses x 26 August 2020. -S/p dexamethasone and remdesivir in the ED. Continue both. -CRP 4.29, procalcitonin 0.08, D-dimer 18,000. Unable to do CTA chest due to JIMI. Patient anticoagulated on Coumadin however INR subtherapeutic at 1.7. Therapeutic heparin drip considered however contraindicated due to recent fall and left hip hematoma. -Lasix 20 mg IV x1 -Supportive care with nebs, incentive spirometer, flutter valve (3) JIMI (acute kidney injury): (4) CKD (chronic kidney disease) stage 3, GFR 30-59 ml/min: Plan: -Creatinine 1.6 (baseline ~ 1.3) -Likely prerenal due to poor p.o. intake in combination with ARB use -Received 1 L IVF in the ED. Given wheezing and lower extremity edema on exam, will trial Lasix 20 mg IV x1 -Hold ARB -Given recent falls, check CK -Follow renal functions (5) Chronic diastolic CHF (congestive heart failure): Plan: -Lasix as above (6) Elevated troponin: Plan: -Troponin 0.133 -No reports of chest pain, EKG without acute ST changes -Noted elevated troponin during recent hospitalization -Trend troponin (7) S/P TAVR (transcatheter aortic valve replacement): (8) long-term (current) use of anticoagulants: Plan: -Per , patient was started on Coumadin 6 months post TAVR due to ?? Micro emboli developing on valve. 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 Local cardiology care establishment pending. -INR 1.7, continue Coumadin (9) HTN (hypertension): Plan: -BP controlled, continue amlodipine, holding losartan due to JIMI (10) DVT prophylaxis: Plan: -On Coumadin, INR 1.7. SCDs while INR <2.0 Admission and Anticipated Discharge Date Admission Date: April 26, 2021 History of Present Illness Chief Complaint: Fall Primary Care Provider: Jose J Coppola MD 85-year-old male with PMH chronic diastolic CHF, s/p TAVR, chronic anticoagulation with Coumadin, HTN, CKD stage III, prostate cancer s/p brachytherapy, and other problems to below who presents to the ED for evaluation after a fall. History is obtained from patient's who is the bedside. Patient recently admitted to [facility] 04/15 through 04/16 after a fall and sustaining a left hip hematoma. Patient new to the area and establish care with Dr. Garner on 04/21. At that visit, patient was noted to have a low-grade fever. He was started on cephalexin for a suspected mild cellulitis of the left elbow. Patient's reports that the patient had been doing well until a couple days ago. She noted increased generalized weakness and difficulty getting out of the chair in bed. This morning, patient had much difficulty getting out of bed and subsequently suffered a fall. reports that patient was also very shaky. She denies that the patient had any loss of consciousness. She reported that she also noted some wheezing. EMS was called and patient was brought to the ED for further evaluation. also notes decreased oral intake over the past few days and worsening lower extremity edema. No other symptoms reported by . Further history unobtainable due to patient's baseline confusion. In the ED, patient was hypoxic on room air at 86%. He is currently requiring 4 L of oxygen via nasal cannula. Patient has a positive for COVID-19. Labs show creatinine 1.6 (up from baseline of ~ 1.3), troponin 0.133, EKG without acute ST changes. Patient was given IV dexamethasone, IV remdesivir, IV Zofran, IVF. Allergies Allergy/AdvReac Type Severity Reaction Status Date / Time No Known Allergies Allergy Unverified 04/26/21 10:40 Home Medications Medication Instructions Recorded Confirmed Type amlodipine 5 mg tablet 5 mg PO PM 04/15/21 04/26/21 History aspirin 81 mg tablet,delayed 81 mg PO PM 04/15/21 04/26/21 History release furosemide 40 mg tablet 40 mg PO QAM 04/15/21 04/26/21 History glucosamine-chondroitin 250 mg-200 2 tab PO DAILY 04/15/21 04/26/21 History mg tablet (Osteo Bi-Flex) losartan 25 mg tablet 25 mg PO PM 04/15/21 04/26/21 History magnesium 250 mg tablet 250 mg PO DAILY 04/15/21 04/26/21 History cgvsqsdw-kcu-gahda acid 300 1 tab PO PM 04/15/21 04/26/21 History mcg-lycopene 600 mcg-lutein 300 mcg tablet (Centrum Silver Men) warfarin 2.5 mg tablet 1.25 mg PO MOWEFR 04/15/21 04/26/21 History warfarin 2.5 mg tablet 2.5 mg PO SUTUTHSA 04/15/21 04/26/21 History neomycin-bacitracn Zn-polymyx 3.5 1 applic EXT BID #1 tube 04/16/21 04/26/21 Rx mg-400 unit-5,000 unit/gram top oint (Triple Antibiotic) cephalexin 500 mg capsule 500 mg PO TID 04/26/21 04/26/21 History vitamin B complex 1 tab PO DAILY 04/26/21 04/26/21 History Past Med/Surg History Medical History Chronic diastolic CHF (congestive heart failure) CKD (chronic kidney disease) stage 3, GFR 30-59 ml/min HTN (hypertension) long-term (current) use of anticoagulants Mild cognitive impairment Prostate CA s/p brachytherapy Surgical History History of appendectomy History of shoulder surgery b/l History of transcatheter aortic valve replacement (TAVR) 2015 Family History Father COPD (chronic obstructive pulmonary disease) Mother Colorectal cancer Social History Smoking Status: Never smoker Hx Alcohol Use: Yes Alcohol type: wine Alcohol Intake Frequency: 4 or More x per/Week Alcohol Intake Frequency Comment: daily, 8 oz per day Hx Substance Use: No Preferred Language: Wallisian Communication Ability: Effective Time Study Technician Required: No Beliefs That Will Affect Care: None marital status: Current Living Situation: Spouse Feels Safe at Home: Yes Assistive Devices: Oxygen - Continuous and Walker Review of Systems Review of Systems: Unobtainable due to cognitive status Physical Exam Constitutional: WD/WN, vitals as above Eyes: PERRL, conjunctivae normal, anicteric sclerae ENMT: external ear and nose normal, oropharynx normal Respiratory: normal respiratory effort and + audible wheezes; no respiratory distress Auscultation: + diminished lung sounds Cardiovascular: Rate/Rhythm: regular rhythm and + bradycardic Vessels: normal peripheral pulses Extremities: + edema (+1-2 pitting edema BLE) Gastrointestinal (Abdomen): normal bowel sounds, soft, nontender, no hepatosplenomegaly Musculoskeletal: no cyanosis or clubbing, extremities motor strength 5/5 Ankle: + ecchymosis (Left hip consistent with hematoma) Skin: no rashes, warm and dry scattered abrasions and ecchymosis in various stages of healing Neurologic: PERRL, EOMI, accommodation nl, no face palsy, no dysarthria Psychiatric: Orientation: alert and oriented to person; + not oriented to place and + not oriented to time Insight: + limited insight Results & Data Results & Data ([facility]) Vital Signs (Past 12 Hours) Vital Signs Temp Pulse Pulse Resp BP BP Pulse Ox 04/26/21 13:30 37.5 C 53 L 22 110/59 L 95 04/26/21 12:30 55 L 30 H 123/53 L 98 04/26/21 12:20 56 L 21 117/54 L 96 04/26/21 11:45 60 21 125/59 L 97 04/26/21 09:28 76 24 94 04/26/21 09:23 39.6 C H 70 26 H 136/68 86 L Laboratory Results Short CBC 04/26/21 Range/Units 09:20 WBC 6.83 (4.8-10.8) K/uL Hgb 12.7 L (14.0-18.0) g/dL Hct 38.4 L (42-52) % Plt Count 255 (130-400) K/uL BMP 04/26/21 09:20 Sodium 135 L Potassium 4.3 Chloride 102 Carbon Dioxide 25 BUN 25 H Creatinine 1.60 H Glucose 126 H Calcium 8.9 Cardiac Enzymes 04/26/21 Range/Units 09:20 Troponin I 0.133 H* (0-0.045) ng/ml Liver Function 04/26/21 Range/Units 09:20 Total Bilirubin 0.9 (0.2-1) mg/dl Direct Bilirubin 0.2 (0-0.2) mg/dl AST 49 H (15-37) U/L ALT 37 (12-78) U/L Alkaline Phosphatase 57 (45-117) U/L Albumin 3.1 L (3.4-5.0) gm/dl Diagnostic Findings Chest X-Ray 04/26/21 09:31 XR chest 1V portable CLINICAL HISTORY: Respiratory Distress TECHNIQUE: Single frontal radiograph of the chest was obtained. Comparison: Comparison is made to chest one view 04/15/2021 FINDINGS: No lines and tubes are seen. The cardiomediastinal silhouette is stable. Scattered calcified granulomata are seen. Lungs are underinflated and the densities are seen in the right lower lung likely representing atelectasis. No evidence of pleural effusion or pneumothorax. Bilateral degenerative changes in the shoulder are noted. IMPRESSION: Atelectasis without acute abnormality. Stable cardiomegaly. ACT 112: Negative or not required by law. Electronically signed by: Matthias Marquez M.D. 04/26/2021 9:59 AM Code Status & VTE Plan Code Status Patient is a full code as per my discussion with patient's who is at the bedside. VTE Prophylaxis Plan VTE Prophylaxis will be ordered: Yes Supervising Physician Co-Signing Physician Notes History detailed by Lisa HALEY notable for 85-year-old male with PMH chronic diastolic CHF, s/p TAVR, chronic anticoagulation with Coumadin, HTN, CKD stage III, prostate cancer s/p brachytherapy who presents to the ED for evaluation after a fall. Patient is confused and not able to provide history. History obtained from Has been weak the past couple of days, associated fall, low grade fever Coughing during evaluation Physical exam notable for elderly man, confused, oriented to person and city only but not to place/time, poor insight, cooperative, on nasal oxygen, abrasion on knee, ecchymosis on left hip, expiratory wheeze and diminished breath sounds, bilateral pitting leg edema Lab notable for INR of 1.7, Na of 135, Cr of 1.6 ( was 1.27 on 04/16/21), trop was 0.133, procal 0.08, +COVID test CXR reported atelectasis. Lungs underinflated Acute hypoxic respiratory failure COVID 19 infection Generalized weakness Fall at home Elevated troponin CXR. Lungs underinflated. Hence reported atelectasis could also have infiltrates/opacities. Hence COVID 19 pneumonia is possible Got IVF in ER. Currently appears a bit fluid overloaded. Lasix 20mg given x 1 Continue dexa and remdesivir Monitor inflammatory markers Incentive spirometry and flutter if able Patient has Echo from 04/16 that showed normal EF Will monitor renal function.Hold home lasix Check CPK and monitor. Elevated 4K from 600 ten days ago. Likely related to fall and hematoma Fall precautions Patient is on warfarin. Will continue this for now. Though INR is subtherapeutic at 1.7. Will monitor INR daily Trop was elevated 10 days ago. Will trend and monitor. EKG do not show remarkable change from 04/15 that suggest ACS Needs PT/OT eval Agree with other plans as detailed by Lisa HALEY
[2021-04-26] MEDS: WARFARIN SOD 2.5 MG TAB PO SCH (17:54)
[2021-04-26] MEDS: ASPIRIN 81 MG ECTAB PO SCH (20:16)
[2021-04-26] MEDS: amLODIPine BESYLATE 5 MG TAB PO SCH (20:16)
[2021-04-26 20:35] LABS: Appearance Urine Clear (Clear); Bacteria Urine Automated Negative (Negative); Bilirubin Urine Negative (Negative); Blood Urine 2+ (Negative); Color Urine Yellow; Glucose Urine UA Negative (Negative); Ketones Urine Negative (Negative); Leukocyte Esterase Urine Negative (Negative); Nitrite Urine Negative (Negative); Protein Urine Trace (Negative); RBC Urine Automated 0-4 /hpf (0-4); Specific Gravity Urine 1.012 (1.000-1.030); Urobilinogen Urine Negative (Negative)
[2021-04-27 05:56] LABS: Hematocrit (blood only) 36.5 % (42-52); Mean Corpuscular Hemoglobin 30.3 pg (25-34); Mean Corpuscular Hgb Conc 32.9 g/dL (32-36); Mean Corpuscular Volume 92.2 fL (80-100); Mean Platelet Volume 9.1 fL (7.4-10.4); Platelet Count 232 K/uL (130-400); RDW Coefficient of Variation 13.9 % (11.5-14.5); RDW Standard Deviation 46.5 fL (36.4-46.3); Red Blood Count 3.96 M/uL (4.7-6.1); White Blood Count 6.33 K/uL (4.8-10.8)
[2021-04-27 06:16] LABS: INR 1.9 (0.9-1.1); Prothrombin Time 17.9 Seconds (9.0-12.0)
[2021-04-27 06:26] LABS: BUN Creatinine Ratio 22.3 (10-20); Calcium 8.6 mg/dl (8.5-10.1); Est GFR (African American) 59.2 ml/min; Est GFR (Non-African American) 51.1 ml/min; Potassium 4.4 mmol/L (3.5-5.1)
[2021-04-27] MEDS: dexAMETHasone 6 MG in SYRINGE 0 ML IV SCH (08:18)
--- NOTE | 2021-04-27 11:01 | Electrocardiogram Report ---
Test Reason : Blood Pressure : / mmHG Vent. Rate : 071 BPM Atrial Rate : 071 BPM P-R Int : 168 ms QRS Dur : 066 ms QT Int : 426 ms P-R-T Axes : 078 040 065 degrees QTc Int : 462 ms Normal sinus rhythm Low voltage QRS Abnormal ECG When compared with ECG of 15-APR-2021 10:11, TN interval has decreased Confirmed by Omega Camilo ([id number]) on 04/27/2021 11:00:35 AM Referred By: REFERRED SELF Confirmed By:Desean Camilo
--- NOTE | 2021-04-27 11:25 | Hospitalist Progress Note ---
Date of Service April 27, 2021 Assessment & Plan (1) Acute respiratory failure with hypoxia: (2) Pneumonia due to COVID-19 virus: Plan: Patient presented from home after a fall. Patient recently admitted to [facility] 04/15 through 04/16 after a fall and sustaining a left hip hematoma. In the ED, patient found to be hypoxic on room air at 86%, febrile 39.6.Patient tested positive for COVID-19. Per , patient received Pfizer doses x 26 August 2020. CRP 4.29, procalcitonin 0.08, D-dimer 18,000. Unable to do CTA chest due to JIMI on CKD3. Patient anticoagulated on Coumadin INR was 1.7 on admission. Currently 1.9 Continue dexamethasone and remdesivir Continue incentive spirometry and flutter Wean oxygen as tolerated (3) JIMI (acute kidney injury): (4) CKD (chronic kidney disease) stage 3, GFR 30-59 ml/min: Plan: On admission, Creatinine 1.6 (baseline ~ 1.3) Continue to hold home ARB He is on lasix 40mg daily at home Cr is 1.28 today Give iv lasix 20mg today Monitor renal function. 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 Micro emboli developing on valve. 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 Local cardiology care establishment pending. INR 1.7 on admission INR is 1.9 today Continue warfarin and monitor (9) HTN (hypertension): Plan: BP controlled, continue amlodipine, Holding losartan due to JIMI (10) Traumatic rhabdomyolysis: Plan: CPK 4000 on admission Trending down Likely due to recent fall with left thigh hematoma (11) DVT prophylaxis: Plan: Warfarin Plan: called and updated Admission and Anticipated Discharge Date Admission Date: April 26, 2021 Subjective 85-year-old male with PMH chronic diastolic CHF, s/p TAVR, chronic anticoagulation with Coumadin, HTN, CKD stage III, prostate cancer s/p brachytherapy who presents to the ED for evaluation after a fall. Being managed for acute hypoxic respiratory failure, COVID 19 infection, JIMI on CKD3 Patient seen and examined this morning. Patient is awake, alert, oriented only to person. Has very poor insight Review of Systems Review of Systems: Unobtainable due to cognitive status Physical Exam Constitutional: + well hydrated; no acute distress Eyes: PERRL, conjunctivae normal, anicteric sclerae ENMT: external ear and nose normal, oropharynx normal Respiratory: Normal resp effort, on nasal cannula, diminished breath sounds, no wheeze Cardiovascular: RRR S1 S2 Gastrointestinal (Abdomen): normal bowel sounds, soft, nontender, no hepatosplenomegaly Musculoskeletal: Bilateral pitting pedal edema Ecchymoses over left thigh Neurologic: PERRL, EOMI, accommodation nl, no face palsy, no dysarthria Psychiatric: Orientation: alert and oriented to person; + not oriented to place and + not oriented to time Results & Data Results & Data ([facility]) Vital Signs (Past 12 Hours) Vital Signs Temp Pulse Pulse Resp BP Pulse Ox 04/27/21 08:20 36.5 C 62 95 H 153/79 H 95 04/27/21 08:01 48 L 04/27/21 03:08 44 L 04/27/21 03:01 36.7 C 50 L 18 123/69 96 Laboratory Results Abnormal lab results 04/26/21 04/26/21 04/26/21 Range/Units 09:20 16:50 16:50 RBC (4.7-6.1) M/uL Hgb (14.0-18.0) g/dL Hct (42-52) % RDW Std Deviation (36.4-46.3) fL PT (9.0-12.0) Seconds INR (0.9-1.1) BUN (7-18) mg/dl BUN/Creatinine Ratio (10-20) Glucose (70-99) mg/dl AST 49 H (15-37) U/L Total Creatine Kinase 4013 H (39-308) U/L Troponin I 0.424 H* (0-0.045) ng/ml Albumin 3.1 L (3.4-5.0) gm/dl Urine Protein (Negative) Urine Blood (Negative) U Epithel Cells (Auto) (0-5) /lpf 04/26/21 04/26/21 04/27/21 Range/Units 20:20 22:30 05:40 RBC 3.96 L (4.7-6.1) M/uL Hgb 12.0 L (14.0-18.0) g/dL Hct 36.5 L (42-52) % RDW Std Deviation 46.5 H (36.4-46.3) fL PT (9.0-12.0) Seconds INR (0.9-1.1) BUN (7-18) mg/dl BUN/Creatinine Ratio (10-20) Glucose (70-99) mg/dl AST (15-37) U/L Total Creatine Kinase (39-308) U/L Troponin I 0.360 H* (0-0.045) ng/ml Albumin (3.4-5.0) gm/dl Urine Protein Trace H (Negative) Urine Blood 2+ H (Negative) U Epithel Cells (Auto) 5-10 H (0-5) /lpf 04/27/21 04/27/21 Range/Units 05:40 05:40 RBC (4.7-6.1) M/uL Hgb (14.0-18.0) g/dL Hct (42-52) % RDW Std Deviation (36.4-46.3) fL PT 17.9 H (9.0-12.0) Seconds INR 1.9 H (0.9-1.1) BUN 29 H (7-18) mg/dl BUN/Creatinine Ratio 22.3 H (10-20) Glucose 116 H (70-99) mg/dl AST (15-37) U/L Total Creatine Kinase 3134 H (39-308) U/L Troponin I (0-0.045) ng/ml Albumin (3.4-5.0) gm/dl Urine Protein (Negative) Urine Blood (Negative) U Epithel Cells (Auto) (0-5) /lpf
[2021-04-27] MEDS ORDERED: REMDESIVIR 100 MG in SODIUM CHLORIDE 0.9% 230 ML IV SCH (11:30)
[2021-04-27] MEDS: REMDESIVIR 100 MG in SODIUM CHLORIDE 0.9% 230 ML IV SCH (11:57)
[2021-04-27] MEDS: SODIUM CHLORIDE 0.9% 10ML FLUSH IV SCH (11:57)
[2021-04-27] MEDS ORDERED: FUROSEMIDE INJ 20 MG/2 ML VIAL IV ONE (15:04)
[2021-04-27] MEDS ORDERED: WARFARIN SOD 5 MG TAB PO SCH (16:00)
[2021-04-27] MEDS: WARFARIN SOD 1.25 MG TAB PO SCH (16:13)
[2021-04-27] MEDS: amLODIPine BESYLATE 5 MG TAB PO SCH (20:40)
[2021-04-27] MEDS: ASPIRIN 81 MG ECTAB PO SCH (20:40)
[2021-04-27] MEDS ORDERED: QUEtiapine FUMARATE 25 MG TABLET PO PRN (22:01)
[2021-04-28] MEDS: dexAMETHasone 6 MG in SYRINGE 0 ML IV SCH (07:55)
[2021-04-28 08:19] LABS: INR 2.3 (0.9-1.1); Prothrombin Time 21.6 Seconds (9.0-12.0)
[2021-04-28 08:21] LABS: D Dimer 1470 ug/L FEU (0-500)
[2021-04-28 08:41] LABS: Albumin Globulin Ratio 0.8 (0.9-2); Albumin Level 2.7 gm/dl (3.4-5.0); BUN Creatinine Ratio 27.2 (10-20); C Reactive Protein 3.41 mg/dl (0-0.29); Calcium 8.5 mg/dl (8.5-10.1); Est GFR (African American) 64.6 ml/min; Est GFR (Non-African American) 55.8 ml/min; Globulin 3.4 gm/dl (2.5-4.0); Magnesium 2.6 mg/dl (1.8-2.4); Potassium 4.4 mmol/L (3.5-5.1); Total Protein 6.1 gm/dl (6.4-8.2)
[2021-04-28 08:53] LABS: Phosphorus 3.2 mg/dl (2.5-4.9)
[2021-04-28 10:39] LABS: Bilirubin,Total 0.8 mg/dl (0.2-1)
--- NOTE | 2021-04-28 11:41 | Hospitalist Progress Note ---
Date of Service April 28, 2021 Assessment & Plan (1) Acute respiratory failure with hypoxia: (2) Pneumonia due to COVID-19 virus: Plan: Patient presented from home after a fall. Patient recently admitted to [facility] 04/15 through 04/16 after a fall and sustaining a left hip hematoma. In the ED, patient found to be hypoxic on room air at 86%, febrile 39.6.Patient tested positive for COVID-19. Per , patient received Pfizer doses x 26 August 2020. CRP 4.29, procalcitonin 0.08, D-dimer 18,000. Unable to do CTA chest due to JIMI on CKD3. Patient anticoagulated on Coumadin INR was 1.7 on admission. Currently 2.3 Currently on dexamethasone and remdesivir AST increased to 104 today but ALT and Alk phos are normal. Got remdesivir today. Will put on hold until tomorrow's LFT is reviewed Continue incentive spirometry and flutter Weaned off oxygen today (3) JIMI (acute kidney injury): (4) CKD (chronic kidney disease) stage 3, GFR 30-59 ml/min: Plan: On admission, Creatinine 1.6 (baseline ~ 1.3) Continue to hold home ARB He is on lasix 40mg daily at home Cr is 1.19 today Give iv lasix 40mg today and resume home dose from tomorrow Monitor renal function (5) Chronic diastolic CHF (congestive heart failure): Plan: Lasix as above (6) Elevated troponin: Plan: Troponin 0.133 (was elevated about 2 weeks ago), peaked at 0.4 and trended down No reports of chest pain, EKG without acute ST changes Noted elevated troponin during recent hospitalization Likely due to renal function and possible demand ischemia from recent illness (7) S/P TAVR (transcatheter aortic valve replacement): (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 Micro emboli developing on valve. 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 Local cardiology care establishment pending. INR 1.7 on admission INR is 2.3 today Continue warfarin and monitor (9) HTN (hypertension): Plan: BP controlled, continue amlodipine, Holding losartan due to JIMI Monitor BP. May resume if poorly controlled as JIMI is resolved (10) Traumatic rhabdomyolysis: Plan: CPK 4000 on admission Trending down to 1100 today Likely due to recent fall with left thigh hematoma (11) DVT prophylaxis: Plan: Warfarin Plan: called and updated PT/OT - patient will need rehab Admission and Anticipated Discharge Date Admission Date: April 26, 2021 Subjective 85-year-old male with PMH chronic diastolic CHF, s/p TAVR, chronic anticoagulation with Coumadin, HTN, CKD stage III, prostate cancer s/p brachytherapy who presents to the ED for evaluation after a fall. Being managed for acute hypoxic respiratory failure, COVID 19 infection, JIMI on CKD3 Patient seen and examined this morning. Patient is awake, alert, oriented only to person. Thinks he is in [place]. Patient and are in the midst of moving from [facility] to [place] Has very poor insight Review of Systems Review of Systems: Unobtainable due to cognitive status Physical Exam Constitutional: + well hydrated; no acute distress Eyes: PERRL, conjunctivae normal, anicteric sclerae ENMT: external ear and nose normal, oropharynx normal Respiratory: Normal respiratory effort. currently on room air. diminished breath sounds lung bases. no crackles Cardiovascular: RRR S1 S2 Gastrointestinal (Abdomen): normal bowel sounds, soft, nontender, no hepatosplenomegaly Musculoskeletal: Bilateral pedal edema Ecchymoses over left thigh improving Neurologic: PERRL, EOMI, accommodation nl, no face palsy, no dysarthria Psychiatric: Orientation: alert and oriented to person; + not oriented to place and + not oriented to time Results & Data Results & Data ([facility]) Vital Signs (Past 12 Hours) Vital Signs Temp Pulse Resp BP Pulse Ox 04/28/21 06:12 36.8 C 53 L 19 119/67 93 04/28/21 02:40 36.5 C 52 L 27 H 148/64 H 99 Laboratory Results Abnormal lab results 04/27/21 04/27/21 04/28/21 Range/Units 16:54 20:13 07:07 PT (9.0-12.0) Seconds INR (0.9-1.1) D-Dimer (0-500) ug/L FEU BUN 32 H (7-18) mg/dl BUN/Creatinine Ratio 27.2 H (10-20) POC Glucose 142 H 155 H (70-99) mg/dl Magnesium 2.6 H (1.8-2.4) mg/dl AST 104 H (15-37) U/L Total Creatine Kinase 1100 H (39-308) U/L C-Reactive Protein 3.41 H (0-0.29) mg/dl Total Protein 6.1 L (6.4-8.2) gm/dl Albumin 2.7 L (3.4-5.0) gm/dl Albumin/Globulin Ratio 0.8 L (0.9-2) 04/28/21 04/28/21 Range/Units 07:07 11:55 PT 21.6 H (9.0-12.0) Seconds INR 2.3 H (0.9-1.1) D-Dimer 1470 H* (0-500) ug/L FEU BUN (7-18) mg/dl BUN/Creatinine Ratio (10-20) POC Glucose 138 H (70-99) mg/dl Magnesium (1.8-2.4) mg/dl AST (15-37) U/L Total Creatine Kinase (39-308) U/L C-Reactive Protein (0-0.29) mg/dl Total Protein (6.4-8.2) gm/dl Albumin (3.4-5.0) gm/dl Albumin/Globulin Ratio (0.9-2)
[2021-04-28] MEDS ORDERED: FUROSEMIDE 40 MG/4 ML VIAL IV ONE (12:00)
[2021-04-28] MEDS: SODIUM CHLORIDE 0.9% 10ML FLUSH IV SCH (12:40)
[2021-04-28] MEDS: REMDESIVIR 100 MG in SODIUM CHLORIDE 0.9% 230 ML IV SCH (12:40)
[2021-04-28] MEDS: WARFARIN SOD 2.5 MG TAB PO SCH (16:39)
[2021-04-28] MEDS: amLODIPine BESYLATE 5 MG TAB PO SCH (22:04)
[2021-04-28] MEDS: ASPIRIN 81 MG ECTAB PO SCH (22:04)
[2021-04-29 08:00] LABS: Hematocrit (blood only) 36.6 % (42-52); Hemoglobin 11.6 g/dL (14.0-18.0); Mean Corpuscular Hemoglobin 29.7 pg (25-34); Mean Corpuscular Hgb Conc 31.7 g/dL (32-36); Mean Corpuscular Volume 93.8 fL (80-100); Mean Platelet Volume 9.6 fL (7.4-10.4); Platelet Count 272 K/uL (130-400); RDW Coefficient of Variation 14.1 % (11.5-14.5); RDW Standard Deviation 48.7 fL (36.4-46.3); White Blood Count 8.08 K/uL (4.8-10.8)
[2021-04-29 08:12] LABS: INR 2.7 (0.9-1.1); Prothrombin Time 24.9 Seconds (9.0-12.0)
[2021-04-29 08:19] LABS: D Dimer 1890 ug/L FEU (0-500)
[2021-04-29] MEDS: FUROSEMIDE 40 MG TAB PO SCH (08:27)
[2021-04-29] MEDS: dexAMETHasone 6 MG in SYRINGE 0 ML IV SCH (08:27)
[2021-04-29 08:32] LABS: Albumin Level 2.5 gm/dl (3.4-5.0); BUN Creatinine Ratio 26.1 (10-20); C Reactive Protein 1.7 mg/dl (0-0.29); Creatinine Clr Calc Pharmacy 53.4 ml/min; Est GFR (African American) 68.1 ml/min; Est GFR (Non-African American) 58.7 ml/min; Magnesium 2.6 mg/dl (1.8-2.4); Potassium 4.8 mmol/L (3.5-5.1)
[2021-04-29 08:37] LABS: Albumin Globulin Ratio 0.8 (0.9-2); Bilirubin,Total 0.7 mg/dl (0.2-1); Total Protein 5.5 gm/dl (6.4-8.2)
[2021-04-29] MEDS: REMDESIVIR 100 MG in SODIUM CHLORIDE 0.9% 230 ML IV SCH (12:20)
[2021-04-29] MEDS: SODIUM CHLORIDE 0.9% 10ML FLUSH IV SCH (13:37)
[2021-04-29] MEDS ORDERED: FUROSEMIDE INJ 20 MG/2 ML VIAL IV ONE (16:27)
[2021-04-29] MEDS: WARFARIN SOD 1.25 MG TAB PO SCH (17:13)
--- NOTE | 2021-04-29 17:40 | Hospitalist Progress Note ---
Date of Service April 29, 2021 Assessment & Plan (1) Acute respiratory failure with hypoxia: (2) Pneumonia due to COVID-19 virus: Plan: Patient is a 85 yr male who presented from home after a fall and was admitted to [facility] 04/15 through 04/16 after a fall and sustaining a left hip hematoma. COVID-19 pneumonia Hypoxia CXR:Atelectasis without acute abnormality. Stable cardiomegaly. Patient received Pfizer doses x 26 August 2020. CRP 4.29 Procalcitonin 0.08 D-dimer 18,000 Patient anticoagulated on Coumadin at baseline Subtherapeutic INR on presentation:1.7 Continue Dexamethasone and remdesivir Monitor LFTs Lasix PRN Consider 2 step if needed Continue Incentive spirometry and flutter Currently on Room Air (3) JIMI (acute kidney injury): (4) CKD (chronic kidney disease) stage 3, GFR 30-59 ml/min: Plan: On admission, Creatinine 1.6 (baseline ~ 1.3) Continue to hold home ARB Cr: 1.14 Monitor renal function while on diuretics (5) Chronic diastolic CHF (congestive heart failure): Plan: Lasix as above (6) Elevated troponin: Plan: Troponin 0.133 (was elevated about 2 weeks ago), peaked at 0.4 and trended down No reports of chest pain, EKG without acute ST changes Elevated troponin likely due to renal function and possible demand ischemia from recent illness (7) S/P TAVR (transcatheter aortic valve replacement): (8) rn long term care (current) use of anticoagulants: Plan: Per , patient was started on Coumadin 6 months post TAVR due to ?? Micro emboli developing on valve. Follows with ethnographer in [facility]. Local cardiology care establishment pending. INR 1.7 on admission INR is 2.7 today Continue warfarin (9) HTN (hypertension): Plan: BP Stable Continue amlodipine, Resume losartan as able (10) Traumatic rhabdomyolysis: Plan: CPK 4000 on admission Trending down to 1100 Likely due to recent fall with left thigh hematoma (11) DVT prophylaxis: Plan: Warfarin CODE STATUS Full code Disposition May need rehab placement Admission and Anticipated Discharge Date Admission Date: April 26, 2021 Subjective Patient is seen and examined at bedside States feeling well during my encounter Sitting in chair comfortably Saturating well on room air Denies any chest pain, shortness of breath, dizziness, nausea, abdominal pain Updated patient's family over the phone Review of Systems Review of Systems: All systems reviewed & are unremarkable except as noted in Subjective Physical Exam Physical Exam: Physical Exam: Vitals signs as noted above General Appearance:Moderately built and nourished, no apparent distress Head: normocephalic, Atraumatic Eyes: normal inspection, EOMI Neck: supple, Trachea midline Respiratory/Chest: Decreased breath sounds, CTA, No accessory muscle use Cardiovascular: S1, S2, No murmur Abdomen/GI:Soft, Non tender, Bowel sounds present Extremities/Musculoskeletal:normal inspection, 1-2+ B/L LE edema Neurologic/Psych:AAOX2, grossly no focal neurological deficits Skin: normal color, warm Results & Data Results & Data ([facility]) Vital Signs (Past 12 Hours) Vital Signs Temp Pulse Resp BP BP Pulse Ox 04/29/21 11:39 37.0 C 48 L 19 139/60 94 04/29/21 07:49 36.3 C L 46 L 20 136/60 95 Laboratory Results Short CBC 04/29/21 Range/Units 07:04 WBC 8.08 (4.8-10.8) K/uL Hgb 11.6 L (14.0-18.0) g/dL Hct 36.6 L (42-52) % Plt Count 272 (130-400) K/uL BMP 04/29/21 07:04 Sodium 141 Potassium 4.8 Chloride 109 H Carbon Dioxide 27 BUN 30 H Creatinine 1.14 Glucose 91 Calcium 9.0 Liver Function 04/29/21 Range/Units 07:04 Total Bilirubin 0.7 (0.2-1) mg/dl AST 75 H (15-37) U/L ALT 54 (12-78) U/L Alkaline Phosphatase 49 (45-117) U/L Albumin 2.5 L (3.4-5.0) gm/dl
[2021-04-29] MEDS: amLODIPine BESYLATE 5 MG TAB PO SCH (20:55)
[2021-04-29] MEDS: ASPIRIN 81 MG ECTAB PO SCH (20:55)
[2021-04-30 07:34] LABS: Prothrombin Time 28.3 Seconds (9.0-12.0)
[2021-04-30 08:02] LABS: Albumin Level 2.5 gm/dl (3.4-5.0); Calcium 8.3 mg/dl (8.5-10.1); Creatinine Clr Calc Pharmacy 58.3 ml/min; Est GFR (African American) 66.7 ml/min; Est GFR (Non-African American) 57.5 ml/min; Potassium 4.2 mmol/L (3.5-5.1)
[2021-04-30 08:05] LABS: Albumin Globulin Ratio 0.8 (0.9-2); Bilirubin,Total 0.8 mg/dl (0.2-1); Globulin 3.1 gm/dl (2.5-4.0); Total Protein 5.6 gm/dl (6.4-8.2)
[2021-04-30] MEDS: dexAMETHasone 6 MG in SYRINGE 0 ML IV SCH (09:29)
[2021-04-30] MEDS: FUROSEMIDE 40 MG TAB PO SCH (09:29)
[2021-04-30] MEDS: REMDESIVIR 100 MG in SODIUM CHLORIDE 0.9% 230 ML IV SCH (12:39)
[2021-04-30] MEDS: SODIUM CHLORIDE 0.9% 10ML FLUSH IV SCH (14:45)
[2021-04-30] MEDS ORDERED: WARFARIN SOD 0.5 MG TAB PO SCH (16:00)
--- NOTE | 2021-04-30 16:07 | Hospitalist Progress Note ---
Date of Service April 30, 2021 Assessment & Plan (1) Acute respiratory failure with hypoxia: (2) Pneumonia due to COVID-19 virus: Plan: Patient is a 85 yr male who presented from home after a fall and was admitted to [facility] 04/15 through 04/16 after a fall and sustaining a left hip hematoma. COVID-19 pneumonia Hypoxia CXR:Atelectasis without acute abnormality. Stable cardiomegaly. Patient received Pfizer doses x 26 August 2020. CRP 4.29 Procalcitonin 0.08 D-dimer 18,000 Patient anticoagulated on Coumadin at baseline Subtherapeutic INR on presentation:1.7 Completed remdesivir course Continue Dexamethasone Day #5 Monitor LFTs Lasix PRN Consider 2 step if needed Continue Incentive spirometry and flutter Saturating low 90s on Room Air (3) JIMI (acute kidney injury): (4) CKD (chronic kidney disease) stage 3, GFR 30-59 ml/min: Plan: On admission, Creatinine 1.6 (baseline ~ 1.3) Continue to hold home ARB Cr: 1.16 Monitor renal function while on diuretics (5) Chronic diastolic CHF (congestive heart failure): Plan: Lasix as above (6) Elevated troponin: Plan: Troponin 0.133 (was elevated about 2 weeks ago), peaked at 0.4 and trended down No reports of chest pain, EKG without acute ST changes Elevated troponin likely due to renal function and possible demand ischemia from recent illness (7) S/P TAVR (transcatheter aortic valve replacement): (8) FDC (current) use of anticoagulants: Plan: Per , patient was started on Coumadin 6 months post TAVR due to ?? Micro emboli developing on valve. 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 Local cardiology care establishment pending. INR 1.7 on admission INR is 3.0 today Decrease warfarin to 0.5 mg today (9) HTN (hypertension): Plan: BP Stable Continue amlodipine Resume losartan as able (10) Traumatic rhabdomyolysis: Plan: CPK 4000 on admission Trending down to 1100 Likely due to recent fall with left thigh hematoma (11) DVT prophylaxis: Plan: Warfarin CODE STATUS Full code Disposition SNF when arranged Case management to help with discharge planning Admission and Anticipated Discharge Date Admission Date: April 26, 2021 Subjective Patient is seen and examined at bedside Subjectively states feeling well today Offers no new complaints Saturating low 90s on room air No issues on Monitor Denies any chest pain, shortness of breath, dizziness, nausea, abdominal pain Review of Systems Review of Systems: All systems reviewed & are unremarkable except as noted in Subjective Physical Exam Physical Exam: Physical Exam: Vitals signs as noted above General Appearance:Moderately built and nourished, no apparent distress Head: normocephalic, Atraumatic Eyes: normal inspection, EOMI Neck: supple, Trachea midline Respiratory/Chest: Decreased breath sounds, CTA, No accessory muscle use Cardiovascular: S1, S2, No murmur Abdomen/GI:Soft, Non tender, Bowel sounds present Extremities/Musculoskeletal:normal inspection, 1-2+ B/L LE edema Neurologic/Psych:AAOX2, grossly no focal neurological deficits Skin: normal color, warm Results & Data Results & Data ([facility]) Vital Signs (Past 12 Hours) Vital Signs Temp Pulse Pulse Resp BP Pulse Ox Pulse Ox 04/30/21 15:51 36.5 C 45 L 20 143/66 H 93 04/30/21 11:44 36.7 C 45 L 22 119/60 95 04/30/21 08:00 42 L 93 04/30/21 07:45 36.4 C L 42 L 20 152/61 H [address] [facility] 04/30/21 06:57 Sodium 138 Potassium 4.2 Chloride 107 Carbon Dioxide 28 BUN 31 H Creatinine 1.16 Glucose 95 Calcium 8.3 L Liver Function 04/30/21 Range/Units 06:57 Total Bilirubin 0.8 (0.2-1) mg/dl AST 63 H (15-37) U/L ALT 64 (12-78) U/L Alkaline Phosphatase 57 (45-117) U/L Albumin 2.5 L (3.4-5.0) gm/dl
[2021-04-30] MEDS: amLODIPine BESYLATE 5 MG TAB PO SCH (20:13)
[2021-04-30] MEDS: ASPIRIN 81 MG ECTAB PO SCH (20:13)
[2021-05-01 04:06] LABS: Hematocrit (blood only) 38.8 % (42-52); Hemoglobin 12.7 g/dL (14.0-18.0); Mean Corpuscular Hgb Conc 32.7 g/dL (32-36); Mean Corpuscular Volume 91.5 fL (80-100); Mean Platelet Volume 9.5 fL (7.4-10.4); Platelet Count 298 K/uL (130-400); RDW Coefficient of Variation 13.7 % (11.5-14.5); RDW Standard Deviation 45.4 fL (36.4-46.3); Red Blood Count 4.24 M/uL (4.7-6.1); White Blood Count 8.67 K/uL (4.8-10.8)
[2021-05-01 04:13] LABS: INR 2.8 (0.9-1.1); Prothrombin Time 26.3 Seconds (9.0-12.0)
[2021-05-01 04:29] LABS: Albumin Level 2.7 gm/dl (3.4-5.0); BUN Creatinine Ratio 23.5 (10-20); Calcium 8.4 mg/dl (8.5-10.1); Creatinine Clr Calc Pharmacy 55.4 ml/min; Est GFR (African American) 62.7 ml/min; Est GFR (Non-African American) 54.1 ml/min; Magnesium 2.3 mg/dl (1.8-2.4); Potassium 4.2 mmol/L (3.5-5.1)
[2021-05-01 04:40] LABS: Albumin Globulin Ratio 0.9 (0.9-2); Bilirubin,Total 0.8 mg/dl (0.2-1); Globulin 3.1 gm/dl (2.5-4.0); Thyroid Stimulating Hormone 1.38 uIu/ml (0.300-4.500); Total Protein 5.8 gm/dl (6.4-8.2)
[2021-05-01] MEDS: dexAMETHasone 6 MG in SYRINGE 0 ML IV SCH (09:02)
[2021-05-01] MEDS: FUROSEMIDE 40 MG TAB PO SCH (09:03)
--- NOTE | 2021-05-01 15:25 | Cardiology Consultation ---
Date of Consultation May 01, 2021 Assessment & Plan (1) Sinus bradycardia: Patient admitted with fever, concerns of SARS-CoV-2 pneumonia with hypoxia observed on 04/26/day 1, pulse oximetry 86% at that time. He has been on supplemental oxygen via nasal cannula which has since been weaned. At present, sinus bradycardia in the 40s noted. Is difficult to ascertain as to whether or not bradycardia is associated the patient's recent falls. He certainly has a cognitive impairment. He is unable to tell me anything about his heart history, and per my review of the chart, similar findings were noted when he was seen during the last admission, and it was not felt that he was having symptomatic bradycardia at that point. I would speculate that he has some degree of chronic bradycardia as he is not on any AV mayur blockers at baseline. Of note, he remains on Coumadin, with INR of 2.8 today, and has been found to have a left thigh hematoma. The benefits versus risks of ongoing anticoagulation will need to be reassessed over time, but given his risk of DVT or PE, I think it is reasonable to continue anticoagulation for now. History of Present Illness Attending Physician: Jeff Faith MD History of Present Illness Mr Trevino is an 85 year old male seen in cardiology consultation per the request of Dr Faith for the evaluation of sinus bradycardia. Patient recently moved to the area from [place] to be closer to family. He was admitted for several days last month for what was thought to be a mechanical fall. EKG performed during that admission 04/15/2021 revealed sinus bradycardia 49 bpm with first-degree AV block, NC interval 246 ms, age-indeterminate septal infarction pattern. The patient's blood pressure remained stable during that hospital stay. He was seen in consultation by Dr. Islas of our practice, and an echocardiogram revealed new acute abnormality, on noted technically limited evaluation on 04/15/2021 with poor acoustic windows. The left ventricular ejection fraction was normal to hyperdynamic at 65 to 70%. Patient has an apparent history of transcatheter aortic valve replacement. Details are uncertain. He is on chronic anticoagulation with Coumadin, perhaps related to atrial fibrillation but this is also uncertain. He has a new AV mayur blockers. Patient was readmitted on 04/26/2021 with weakness, fall, confusion, and was found to be Covid positive. Repeat EKG performed 04/26/2021 revealed sinus rhythm at 71 bpm, ongoing age- indeterminate septal infarction pattern noted, no acute changes. The patient is receiving treatment including IV dexamethasone. Cardiology was asked to reassess the patient due to sinus bradycardia. Currently he is resting in bed and in the bedside chair, in sinus bradycardia in the 40s has been noted, with sleep, he has been as low as the 30s. There have been no pauses or high-grade AV block. Unable to obtain history from the patient. As has been noted by multiple providers, he has a cognitive impairment. It is difficult to discern how much of this is dementia versus delirium but it has at least been present since 04/15/2021. Allergies Allergy/AdvReac Type Severity Reaction Status Date / Time No Known Allergies Allergy Unverified 04/26/21 10:40 Home Medications Medication Instructions Recorded Confirmed Type amlodipine 5 mg tablet 5 mg PO PM 04/15/21 04/26/21 History aspirin 81 mg tablet,delayed 81 mg PO PM 04/15/21 04/26/21 History release furosemide 40 mg tablet 40 mg PO QAM 04/15/21 04/26/21 History glucosamine-chondroitin 250 mg-200 2 tab PO DAILY 04/15/21 04/26/21 History mg tablet (Osteo Bi-Flex) losartan 25 mg tablet 25 mg PO PM 04/15/21 04/26/21 History magnesium 250 mg tablet 250 mg PO DAILY 04/15/21 04/26/21 History ybziahpm-oub-plste acid 300 1 tab PO PM 04/15/21 04/26/21 History mcg-lycopene 600 mcg-lutein 300 mcg tablet (Centrum Silver Men) warfarin 2.5 mg tablet 1.25 mg PO MOWEFR 04/15/21 04/26/21 History warfarin 2.5 mg tablet 2.5 mg PO SUTUTHSA 04/15/21 04/26/21 History neomycin-bacitracn Zn-polymyx 3.5 1 applic EXT BID #1 tube 04/16/21 04/26/21 Rx mg-400 unit-5,000 unit/gram top oint (Triple Antibiotic) cephalexin 500 mg capsule 500 mg PO TID 04/26/21 04/26/21 History vitamin B complex 1 tab PO DAILY 04/26/21 04/26/21 History Patient History Medical History Chronic diastolic CHF (congestive heart failure) CKD (chronic kidney disease) stage 3, GFR 30-59 ml/min HTN (hypertension) FPC (current) use of anticoagulants Mild cognitive impairment Prostate CA s/p brachytherapy Surgical History History of appendectomy History of shoulder surgery b/l History of transcatheter aortic valve replacement (TAVR) 2015 Family History Father COPD (chronic obstructive pulmonary disease) Mother Colorectal cancer Social History Smoking Status: Never smoker Hx Alcohol Use: Yes Alcohol type: wine Alcohol Intake Frequency: 4 or More x per/Week Alcohol Intake Frequency Comment: daily, 8 oz per day Hx Substance Use: No Preferred Language: Ghanaian Communication Ability: Effective Rn Prior Authorization Required: No Beliefs That Will Affect Care: None marital status: Current Living Situation: Spouse Feels Safe at Home: Yes Assistive Devices: Walker Review of Systems Review of Systems: Unobtainable due to cognitive status Physical Exam Constitutional: no acute distress Cardiovascular: Rate/Rhythm: regular rate Heart Sounds: no murmur Results & Data ([facility]) Vital Signs (Past 12 Hours) Vital Signs Temp Pulse Resp BP BP Pulse Ox Pulse Ox 05/01/21 11:19 36.8 C 41 L 18 128/63 94 05/01/21 08:00 94 05/01/21 04:20 36.4 C L 44 L 16 153/66 H 92
--- NOTE | 2021-05-01 16:46 | Hospitalist Progress Note ---
Date of Service May 01, 2021 Assessment & Plan (1) Acute respiratory failure with hypoxia: (2) Pneumonia due to COVID-19 virus: Plan: Patient is a 85 yr male who presented from home after a fall and was admitted to [facility] 04/15 through 04/16 after a fall and sustaining a left hip hematoma. COVID-19 pneumonia Hypoxia CXR:Atelectasis without acute abnormality. Stable cardiomegaly. Patient received Pfizer doses x 26 August 2020. CRP 4.29 Procalcitonin 0.08 D-dimer 18,000 Patient anticoagulated on Coumadin at baseline Subtherapeutic INR on presentation:1.7 Completed remdesivir course Continue Dexamethasone Day #6 Continue Lasix 40 mg daily Consider 2 step if needed Continue Incentive spirometry and flutter Saturating low 90s on Room Air Continue current management Waiting for placement (3) JIMI (acute kidney injury): (4) CKD (chronic kidney disease) stage 3, GFR 30-59 ml/min: Plan: On admission, Creatinine 1.6 (baseline ~ 1.3) Continue to hold home ARB Cr: 1.2 Monitor renal function while on diuretics Sinus bradycardia Appreciate cardiology input Avoid AV mayur blocking agents Continue to monitor (5) Chronic diastolic CHF (congestive heart failure): Plan: Lasix as above (6) Elevated troponin: Plan: Troponin 0.133 (was elevated about 2 weeks ago), peaked at 0.4 and trended down No reports of chest pain, EKG without acute ST changes Elevated troponin likely due to renal function and possible demand ischemia from recent illness (7) S/P TAVR (transcatheter aortic valve replacement): (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 Micro emboli developing on valve. Follows with welder fitter apprentice in [facility]. Local cardiology care establishment pending. INR 1.7 on admission INR is 2.8 today Continue warfarin 1 mg today (9) HTN (hypertension): Plan: BP Stable Continue amlodipine Resume losartan as able (10) Traumatic rhabdomyolysis: Plan: CPK 4000 on admission Trending down to 1100 Likely due to recent fall with left thigh hematoma (11) DVT prophylaxis: Plan: Warfarin CODE STATUS Full code Disposition SNF when arranged Case management to help with discharge planning Admission and Anticipated Discharge Date Admission Date: April 26, 2021 Subjective Patient is seen and examined at bedside Sleeping comfortably during my encounter Difficult to obtain history given cognitive status Discussed with cardiology regarding bradycardia Denies any chest pain, shortness of breath, dizziness, nausea, abdominal pain Waiting for placement Review of Systems Review of Systems: All systems reviewed & are unremarkable except as noted in Subjective Physical Exam Physical Exam: Physical Exam: Vitals signs as noted above General Appearance:Moderately built and nourished, no apparent distress Head: normocephalic, Atraumatic Eyes: normal inspection, EOMI Neck: supple, Trachea midline Respiratory/Chest: Decreased breath sounds, CTA, No accessory muscle use Cardiovascular: S1, S2, No murmur, +Bradycardia Abdomen/GI:Soft, Non tender, Bowel sounds present Extremities/Musculoskeletal:normal inspection, 1-2+ B/L LE edema Neurologic/Psych:AAOX2, grossly no focal neurological deficits Skin: normal color, warm Results & Data Results & Data ([facility]) Vital Signs (Past 12 Hours) Vital Signs Temp Pulse Resp BP Pulse Ox Pulse Ox 05/01/21 16:07 36.6 C 42 L 17 156/65 H 90 05/01/21 11:19 36.8 C 41 L 18 128/63 94 05/01/21 08:00 94 Laboratory Results Short CBC 05/01/21 Range/Units 03:50 WBC 8.67 (4.8-10.8) K/uL Hgb 12.7 L (14.0-18.0) g/dL Hct 38.8 L (42-52) % Plt Count 298 (130-400) K/uL BMP 05/01/21 03:50 Sodium 138 Potassium 4.2 Chloride 105 Carbon Dioxide 31 BUN 29 H Creatinine 1.22 Glucose 109 H Calcium 8.4 L Liver Function 05/01/21 Range/Units 03:50 Total Bilirubin 0.8 (0.2-1) mg/dl AST 53 H (15-37) U/L ALT 67 (12-78) U/L Alkaline Phosphatase 54 (45-117) U/L Albumin 2.7 L (3.4-5.0) gm/dl
[2021-05-01] MEDS: WARFARIN SOD 1 MG TAB PO SCH (17:59)
[2021-05-01] MEDS: amLODIPine BESYLATE 5 MG TAB PO SCH (20:56)
[2021-05-01] MEDS: ASPIRIN 81 MG ECTAB PO SCH (20:56)
[2021-05-02 06:52] LABS: INR 2.9 (0.9-1.1); Prothrombin Time 27.2 Seconds (9.0-12.0)
[2021-05-02 07:20] LABS: BUN Creatinine Ratio 24.5 (10-20); Calcium 8.6 mg/dl (8.5-10.1); Creatinine Clr Calc Pharmacy 54.1 ml/min; Est GFR (African American) 60.3 ml/min; Potassium 4.5 mmol/L (3.5-5.1)
[2021-05-02] MEDS: dexAMETHasone 6 MG in SYRINGE 0 ML IV SCH (08:00)
[2021-05-02] MEDS: FUROSEMIDE 40 MG TAB PO SCH (08:00)
--- NOTE | 2021-05-02 16:42 | Hospitalist Progress Note ---
Date of Service May 02, 2021 Assessment & Plan (1) Acute respiratory failure with hypoxia: (2) Pneumonia due to COVID-19 virus: Plan: Patient is a 85 yr male who presented from home after a fall and was admitted to [facility] 04/15 through 04/16 after a fall and sustaining a left hip hematoma. COVID-19 pneumonia Hypoxia CXR:Atelectasis without acute abnormality. Stable cardiomegaly. Patient received Pfizer doses x 26 August 2020. CRP 4.29 Procalcitonin 0.08 D-dimer 18,000 Patient anticoagulated on Coumadin at baseline Subtherapeutic INR on presentation:1.7 Completed remdesivir course Continue Dexamethasone Day #7/ Continue Lasix 40 mg daily Consider 2 step if needed Continue Incentive spirometry and flutter Saturating low 94 % on Room Air Waiting for Rehab placement (3) JIMI (acute kidney injury): (4) CKD (chronic kidney disease) stage 3, GFR 30-59 ml/min: Plan: On admission, Creatinine 1.6 (baseline ~ 1.3) Continue to hold home ARB Cr: 1.2 Monitor renal function while on diuretics Sinus bradycardia Appreciate cardiology input Avoid AV mayur blocking agents Continue to monitor (5) Chronic diastolic CHF (congestive heart failure): Plan: Lasix as above (6) Elevated troponin: Plan: Troponin 0.133 (was elevated about 2 weeks ago), peaked at 0.4 and trended down No reports of chest pain, EKG without acute ST changes Elevated troponin likely due to renal function and possible demand ischemia from recent illness (7) S/P TAVR (transcatheter aortic valve replacement): (8) shelter (current) use of anticoagulants: Plan: Per , patient was started on Coumadin 6 months post TAVR due to ?? Micro emboli developing on valve. 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 Local cardiology care establishment pending. INR 1.7 on admission INR is 2.9 today Continue warfarin 1 mg today (9) HTN (hypertension): Plan: BP Stable Continue amlodipine, Losartan (10) Traumatic rhabdomyolysis: Plan: CPK 4000 on admission Trending down to 1100 Likely due to recent fall with left thigh hematoma (11) DVT prophylaxis: Plan: Warfarin CODE STATUS Full code Disposition Rehab when arranged Case management to help with discharge planning Admission and Anticipated Discharge Date Admission Date: April 26, 2021 Subjective Patient is seen and examined at bedside Sitting in chair comfortably during my encounter Offers no new complaints Waiting for rehab placement Remains bradycardic on monitor Review of Systems Review of Systems: All systems reviewed & are unremarkable except as noted in Subjective Physical Exam Physical Exam: Physical Exam: Vitals signs as noted above General Appearance:Moderately built and nourished, no apparent distress Head: normocephalic, Atraumatic Eyes: normal inspection, EOMI Neck: supple, Trachea midline Respiratory/Chest: Decreased breath sounds, CTA, No accessory muscle use Cardiovascular: S1, S2, No murmur, +Bradycardia Abdomen/GI:Soft, Non tender, Bowel sounds present Extremities/Musculoskeletal:normal inspection, 1-2+ B/L LE edema Neurologic/Psych:AAOX2, grossly no focal neurological deficits Skin: normal color, warm Results & Data Results & Data ([facility]) Vital Signs (Past 12 Hours) Vital Signs Temp Pulse Pulse Resp BP Pulse Ox 05/02/21 15:52 36.9 C 44 L 18 138/60 94 05/02/21 11:42 37 C 20 111/74 93 05/02/21 08:00 45 L 05/02/21 06:59 36.6 C 40 L 18 141/62 H 93 Laboratory Results BMP 05/02/21 06:28 Sodium 138 Potassium 4.5 Chloride 106 Carbon Dioxide 31 BUN 31 H Creatinine 1.26 Glucose 90 Calcium 8.6
[2021-05-02] MEDS: WARFARIN SOD 1 MG TAB PO SCH (17:50)
[2021-05-02] MEDS: LOSARTAN POTASSIUM 25 MG TAB PO SCH (21:24)
[2021-05-02] MEDS: ASPIRIN 81 MG ECTAB PO SCH (21:24)
[2021-05-02] MEDS: amLODIPine BESYLATE 5 MG TAB PO SCH (21:24)
[2021-05-03 07:16] LABS: INR 2.9 (0.9-1.1); Prothrombin Time 26.9 Seconds (9.0-12.0)
[2021-05-03 07:51] LABS: BUN Creatinine Ratio 27.3 (10-20); Calcium 8.9 mg/dl (8.5-10.1); Creatinine Clr Calc Pharmacy 53.9 ml/min; Est GFR (African American) 60.9 ml/min; Est GFR (Non-African American) 52.5 ml/min
[2021-05-03] MEDS: FUROSEMIDE 40 MG TAB PO SCH (08:33)
[2021-05-03] MEDS: MAGNESIUM OXIDE 400 MG TAB PO SCH (08:33)
[2021-05-03] MEDS: dexAMETHasone 6 MG in SYRINGE 0 ML IV SCH (09:06)
--- NOTE | 2021-05-03 09:20 | XRay Report ---
XR chest 1V portable CLINICAL HISTORY: Hypoxia, COVID COMPARISON STUDY: Chest radiograph April 26, 2021. FINDINGS: Elevation the right hemidiaphragm is unchanged. There may be minimal right lung opacities. There is no pneumothorax or pleural effusion. Cardiac size is stable. Prosthetic cardiac valve is not ed. Mediastinal contours are normal. There is no evidence for pulmonary edema. Severe degenerative ch anges within both shoulders are noted as well as postoperative findings within the left humeral head. IMPRESSION: 1. Possible minimal right lung opacities. 2. Cardiomegaly without evidence for pulmonary edema. ACT 112: Negative or not required by law. Electronically signed by: Maxwell Funez M.D. 05/03/2021 9:19 AM
--- NOTE | 2021-05-03 16:39 | Hospitalist Progress Note ---
Date of Service May 03, 2021 Assessment & Plan (1) Acute respiratory failure with hypoxia: (2) Pneumonia due to COVID-19 virus: Plan: Patient is a 85 yr male who presented from home after a fall and was admitted to [facility] 04/15 through 04/16 after a fall and sustaining a left hip hematoma. COVID-19 pneumonia Hypoxia CXR:Atelectasis without acute abnormality. Stable cardiomegaly. Patient received Pfizer doses x 26 August 2020. CRP 4.29 Procalcitonin 0.08 D-dimer 18,000 Patient anticoagulated on Coumadin at baseline Subtherapeutic INR on presentation:1.7 Completed remdesivir course Continue Dexamethasone Day #8/10 Continue Lasix 40 mg daily Consider 2 step if needed Continue Incentive spirometry and flutter Saturating well on Room Air Waiting for Rehab placement (3) JIMI (acute kidney injury): (4) CKD (chronic kidney disease) stage 3, GFR 30-59 ml/min: Plan: On admission, Creatinine 1.6 (baseline ~ 1.3) Continue to hold home ARB Cr: 1.2 Monitor renal function while on diuretics Sinus bradycardia 17 beats NSVT--Asymptomatic on 05/03/21 Appreciate cardiology input Avoid AV mayur blocking agents Continue to monitor (5) Chronic diastolic CHF (congestive heart failure): Plan: Lasix as above (6) Elevated troponin: Plan: Troponin 0.133 (was elevated about 2 weeks ago), peaked at 0.4 and trended down No reports of chest pain, EKG without acute ST changes Elevated troponin likely due to renal function and possible demand ischemia from recent illness (7) S/P TAVR (transcatheter aortic valve replacement): (8) custodial (current) use of anticoagulants: Plan: Per , patient was started on Coumadin 6 months post TAVR due to ?? Micro emboli developing on valve. Follows with floriculture teacher in [facility]. Local cardiology care establishment pending. INR 1.7 on admission INR is 2.9 today Continue warfarin 1 mg today (9) HTN (hypertension): Plan: BP Stable Continue amlodipine, Losartan (10) Traumatic rhabdomyolysis: Plan: CPK 4000 on admission Trending down to 1100 Likely due to recent fall with left thigh hematoma (11) DVT prophylaxis: Plan: Warfarin CODE STATUS Full code Disposition Rehab when arranged Case management to help with discharge planning Admission and Anticipated Discharge Date Admission Date: April 26, 2021 Subjective Patient is seen and examined at bedside No distress on exam Lying in bed comfortably States feeling well Saturating well on room air Waiting for rehab placement Had 17 beats of NSVT this morning, asymptomatic Review of Systems Review of Systems: All systems reviewed & are unremarkable except as noted in Subjective Physical Exam Physical Exam: Physical Exam: Vitals signs as noted above General Appearance:Moderately built and nourished, no apparent distress Head: normocephalic, Atraumatic Eyes: normal inspection, EOMI Neck: supple, Trachea midline Respiratory/Chest: Decreased breath sounds, CTA, No accessory muscle use Cardiovascular: S1, S2, No murmur, +Bradycardia Abdomen/GI:Soft, Non tender, Bowel sounds present Extremities/Musculoskeletal:normal inspection, 1-2+ B/L LE edema Neurologic/Psych:AAOX2, grossly no focal neurological deficits Skin: normal color, warm Results & Data Results & Data ([facility]) Vital Signs (Past 12 Hours) Vital Signs Temp Pulse Pulse Resp BP BP Pulse Ox 05/03/21 15:36 36.7 C 47 L 14 128/60 94 05/03/21 11:56 36.8 C 58 L 14 167/89 H 94 05/03/21 08:00 45 L 05/03/21 07:30 36.8 C 42 L 18 148/65 H 94 Pulse Ox 05/03/21 15:36 05/03/21 11:56 05/03/21 08:00 94 05/03/21 07:30 Laboratory Results [facility] 05/03/21 05:50 Sodium 140 Potassium 5.0 Chloride 106 Carbon Dioxide 28 BUN 34 H Creatinine 1.25 Glucose 80 Calcium 8.9
[2021-05-03] MEDS: WARFARIN SOD 1 MG TAB PO SCH (17:54)
[2021-05-03] MEDS: amLODIPine BESYLATE 5 MG TAB PO SCH (20:47)
[2021-05-03] MEDS: LOSARTAN POTASSIUM 25 MG TAB PO SCH (20:47)
[2021-05-03] MEDS: ASPIRIN 81 MG ECTAB PO SCH (20:47)
[2021-05-04 07:16] LABS: INR 2.9 (0.9-1.1); Prothrombin Time 26.7 Seconds (9.0-12.0)
[2021-05-04 07:46] LABS: BUN Creatinine Ratio 25.5 (10-20); Calcium 8.8 mg/dl (8.5-10.1); Creatinine Clr Calc Pharmacy 51.4 ml/min; Est GFR (African American) 58.1 ml/min; Est GFR (Non-African American) 50.1 ml/min; Magnesium 2.5 mg/dl (1.8-2.4); Potassium 4.6 mmol/L (3.5-5.1)
[2021-05-04] MEDS: dexAMETHasone 6 MG in SYRINGE 0 ML IV SCH (09:44)
[2021-05-04] MEDS: FUROSEMIDE 40 MG TAB PO SCH (09:44)
[2021-05-04] MEDS: MAGNESIUM OXIDE 400 MG TAB PO SCH (09:44)
[2021-05-04] MEDS: WARFARIN SOD 1 MG TAB PO SCH (16:09)
--- NOTE | 2021-05-04 16:57 | Hospitalist Progress Note ---
Date of Service May 04, 2021 Assessment & Plan (1) Acute respiratory failure with hypoxia: (2) Pneumonia due to COVID-19 virus: Plan: Patient is a 85 yr male who presented from home after a fall and was admitted to [facility] 04/15 through 04/16 after a fall and sustaining a left hip hematoma. COVID-19 pneumonia Hypoxia CXR:Atelectasis without acute abnormality. Stable cardiomegaly. Patient received Pfizer doses x 26 August 2020. CRP 4.29 Procalcitonin 0.08 D-dimer 18,000 Patient anticoagulated on Coumadin at baseline Subtherapeutic INR on presentation:1.7 Completed remdesivir course Continue Dexamethasone Day as per protocol to complete 10 day course Continue Lasix 40 mg daily Continue Incentive spirometry and flutter Waiting for Rehab placement Continue supplemental oxygen as needed Nocturnal hypoxia Will do nocturnal oximetry study Continue supplemental oxygen as needed (3) JIMI (acute kidney injury): (4) CKD (chronic kidney disease) stage 3, GFR 30-59 ml/min: Plan: On admission, Creatinine 1.6 (baseline ~ 1.3) Continue to hold home ARB Cr: 1.3 Monitor renal function while on diuretics Sinus bradycardia 17 beats NSVT--Asymptomatic on 05/03/21 Appreciate cardiology input Avoid AV mayur blocking agents Continue to monitor (5) Chronic diastolic CHF (congestive heart failure): Plan: Lasix as above (6) Elevated troponin: Plan: Troponin 0.133 (was elevated about 2 weeks ago), peaked at 0.4 and trended down No reports of chest pain, EKG without acute ST changes Elevated troponin likely due to renal function and possible demand ischemia from recent illness (7) S/P TAVR (transcatheter aortic valve replacement): (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 Micro emboli developing on valve. Follows with business segment manager in [facility]. Local cardiology care establishment pending. INR 1.7 on admission INR is 2.9 today Continue warfarin 1 mg today (9) HTN (hypertension): Plan: BP Stable Continue amlodipine, Losartan (10) Traumatic rhabdomyolysis: Plan: CPK 4000 on admission Trending down to 1100 Likely due to recent fall with left thigh hematoma (11) DVT prophylaxis: Plan: Warfarin CODE STATUS Full code Disposition Rehab when arranged Case management to help with discharge planning Admission and Anticipated Discharge Date Admission Date: April 26, 2021 Subjective Patient is seen and examined at bedside Poor historian secondary to cognitive status Saturating well on 2 L supplemental oxygen Noted hypoxia at bedtime Updated patient's family over the phone Denies any chest pain, shortness of breath, dizziness, nausea, abdominal pain Waiting for rehab placement Review of Systems Review of Systems: All systems reviewed & are unremarkable except as noted in Subjective Physical Exam Physical Exam: Physical Exam: Vitals signs as noted above General Appearance:Moderately built and nourished, no apparent distress Head: normocephalic, Atraumatic Eyes: normal inspection, EOMI Neck: supple, Trachea midline Respiratory/Chest: Decreased breath sounds, CTA, No accessory muscle use Cardiovascular: S1, S2, No murmur, +Bradycardia Abdomen/GI:Soft, Non tender, Bowel sounds present Extremities/Musculoskeletal:normal inspection, 1-2+ B/L LE edema Neurologic/Psych:AAOX2, grossly no focal neurological deficits Skin: normal color, warm Results & Data Results & Data ([facility]) Vital Signs (Past 12 Hours) Vital Signs Temp Pulse Pulse Resp BP BP Pulse Ox 05/04/21 15:01 36.6 C 46 L 17 130/63 93 05/04/21 11:30 36.9 C 49 L 19 134/64 96 05/04/21 10:00 39 L 05/04/21 08:00 05/04/21 07:37 36.2 C L 42 L 20 140/62 98 Pulse Ox 05/04/21 15:01 05/04/21 11:30 05/04/21 10:00 05/04/21 08:00 96 05/04/21 07:37 Laboratory Results [facility] 05/04/21 06:12 Sodium 138 Potassium 4.6 Chloride 104 Carbon Dioxide 29 BUN 33 H Creatinine 1.30 Glucose 87 Calcium 8.8
[2021-05-04] MEDS: amLODIPine BESYLATE 5 MG TAB PO SCH (21:44)
[2021-05-04] MEDS: ASPIRIN 81 MG ECTAB PO SCH (21:44)
[2021-05-04] MEDS: LOSARTAN POTASSIUM 25 MG TAB PO SCH (21:44)
[2021-05-05 08:16] LABS: INR 2.8 (0.9-1.1); Prothrombin Time 26.6 Seconds (9.0-12.0)
[2021-05-05 08:36] LABS: BUN Creatinine Ratio 27.6 (10-20); Creatinine Clr Calc Pharmacy 53.9 ml/min; Est GFR (African American) 61.5 ml/min; Est GFR (Non-African American) 53.1 ml/min; Potassium 4.4 mmol/L (3.5-5.1)
[2021-05-05] MEDS: FUROSEMIDE 40 MG TAB PO SCH (08:38)
[2021-05-05] MEDS: dexAMETHasone 6 MG in SYRINGE 0 ML IV SCH (08:38)
[2021-05-05] MEDS: MAGNESIUM OXIDE 400 MG TAB PO SCH (08:39)
--- NOTE | 2021-05-05 16:47 | Hospitalist Progress Note ---
Date of Service May 05, 2021 Assessment & Plan (1) Acute respiratory failure with hypoxia: (2) Pneumonia due to COVID-19 virus: Plan: Patient is a 85 yr male who presented from home after a fall and was admitted to [facility] 04/15 through 04/16 after a fall and sustaining a left hip hematoma. COVID-19 pneumonia Hypoxia CXR:Atelectasis without acute abnormality. Stable cardiomegaly. Patient received Pfizer doses x 26 August 2020. CRP 4.29 Procalcitonin 0.08 D-dimer 18,000 Patient anticoagulated on Coumadin at baseline Subtherapeutic INR on presentation:1.7 Completed remdesivir course Will complete Dexamethasone course tomorrow Continue Lasix 40 mg daily Continue Incentive spirometry and flutter Waiting for Rehab placement (3) JIMI (acute kidney injury): (4) CKD (chronic kidney disease) stage 3, GFR 30-59 ml/min: Plan: On admission, Creatinine 1.6 (baseline ~ 1.3) Continue to hold home ARB Cr: 1.2 Monitor renal function while on diuretics Sinus bradycardia 17 beats NSVT--Asymptomatic on 05/03/21 Appreciate cardiology input Avoid AV mayur blocking agents Continue to monitor Advised to follow-up with cardiology as outpatient (5) Chronic diastolic CHF (congestive heart failure): Plan: Lasix as above (6) Elevated troponin: Plan: Troponin 0.133 (was elevated about 2 weeks ago), peaked at 0.4 and trended down No reports of chest pain, EKG without acute ST changes Elevated troponin likely due to renal function and possible demand ischemia from recent illness (7) S/P TAVR (transcatheter aortic valve replacement): (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 Micro emboli developing on valve. Follows with electrophonic engineer in [facility]. Local cardiology care establishment pending. INR 1.7 on admission INR is 2.8 today Continue warfarin 1 mg today (9) HTN (hypertension): Plan: BP Stable Continue amlodipine, Losartan (10) Traumatic rhabdomyolysis: Plan: CPK 4000 on admission Trending down to 1100 Likely due to recent fall with left thigh hematoma (11) DVT prophylaxis: Plan: Warfarin CODE STATUS Full code Disposition Waiting for Rehab placement Case management to help with discharge planning Admission and Anticipated Discharge Date Admission Date: April 26, 2021 Subjective Patient is seen and examined at bedside Poor historian secondary to cognitive status saturating well on room air Updated patient's family over the phone today Denies any chest pain, shortness of breath, dizziness, nausea, abdominal pain Review of Systems Review of Systems: All systems reviewed & are unremarkable except as noted in Subjective Physical Exam Physical Exam: Physical Exam: Vitals signs as noted above General Appearance:Moderately built and nourished, no apparent distress Head: normocephalic, Atraumatic Eyes: normal inspection, EOMI Neck: supple, Trachea midline Respiratory/Chest: Decreased breath sounds, CTA, No accessory muscle use Cardiovascular: S1, S2, No murmur, +Bradycardia Abdomen/GI:Soft, Non tender, Bowel sounds present Extremities/Musculoskeletal:normal inspection, 1-2+ B/L LE edema Neurologic/Psych:AAOX2, grossly no focal neurological deficits Skin: normal color, warm Results & Data Results & Data ([facility]) Vital Signs (Past 12 Hours) Vital Signs Temp Pulse Pulse Resp BP Pulse Ox Pulse Ox 05/05/21 15:46 36.3 C L 42 L 8 L 121/55 L 93 05/05/21 12:22 36.6 C 46 L 8 L 118/71 90 05/05/21 08:07 37.1 C 43 L 12 135/86 98 05/05/21 08:00 39 L 95 Laboratory Results [facility] 05/05/21 07:04 Sodium 138 Potassium 4.4 Chloride 106 Carbon Dioxide 26 BUN 34 H Creatinine 1.24 Glucose 81 Calcium 9.0
[2021-05-05] MEDS: WARFARIN SOD 1 MG TAB PO SCH (17:04)
[2021-05-05] MEDS: LOSARTAN POTASSIUM 25 MG TAB PO SCH (20:49)
[2021-05-05] MEDS: ASPIRIN 81 MG ECTAB PO SCH (20:49)
[2021-05-05] MEDS: amLODIPine BESYLATE 5 MG TAB PO SCH (20:49)
[2021-05-06 06:59] LABS: INR 2.8 (0.9-1.1); Prothrombin Time 26.6 Seconds (9.0-12.0)
[2021-05-06 07:10] LABS: BUN Creatinine Ratio 25.9 (10-20); Calcium 8.9 mg/dl (8.5-10.1); Creatinine Clr Calc Pharmacy 55.7 ml/min; Est GFR (Non-African American) 55.2 ml/min; Potassium 4.9 mmol/L (3.5-5.1)
[2021-05-06] MEDS: FUROSEMIDE 40 MG TAB PO SCH (08:34)
[2021-05-06] MEDS: dexAMETHasone 6 MG in SYRINGE 0 ML IV SCH (08:34)
[2021-05-06] MEDS: MAGNESIUM OXIDE 400 MG TAB PO SCH (08:35)
--- NOTE | 2021-05-06 14:36 | Discharge Summary ---
Date of Service May 06, 2021 Admission HPI Per Admitting Provider 85-year-old male with PMH chronic diastolic CHF, s/p TAVR, chronic anticoagulation with Coumadin, HTN, CKD stage III, prostate cancer s/p brachytherapy, and other problems to below who presents to the ED for evaluation after a fall. History is obtained from patient's who is the bedside. Patient recently admitted to [facility] 04/15 through 04/16 after a fall and sustaining a left hip hematoma. Patient new to the area and establish care with Dr. Garner on 04/21. At that visit, patient was noted to have a low-grade fever. He was started on cephalexin for a suspected mild cellulitis of the left elbow. Patient's reports that the patient had been doing well until a couple days ago. She noted increased generalized weakness and difficulty getting out of the chair in bed. This morning, patient had much difficulty getting out of bed and subsequently suffered a fall. reports that patient was also very shaky. She denies that the patient had any loss of consciousness. She reported that she also noted some wheezing. EMS was called and patient was brought to the ED for further evaluation. also notes decreased oral intake over the past few days and worsening lower extremity edema. No other symptoms reported by . Further history unobtainable due to patient's baseline confusion. In the ED, patient was hypoxic on room air at 86%. He is currently requiring 4 L of oxygen via nasal cannula. Patient has a positive for COVID-19. Labs show creatinine 1.6 (up from baseline of ~ 1.3), troponin 0.133, EKG without acute ST changes. Patient was given IV dexamethasone, IV remdesivir, IV Zofran, IVF. Admission Exam Per Admitting Provider Constitutional: WD/WN, vitals as above Eyes: PERRL, conjunctivae normal, anicteric sclerae ENMT: external ear and nose normal, oropharynx normal Respiratory: normal respiratory effort and + audible wheezes; no respiratory distress Auscultation: + diminished lung sounds Cardiovascular: Rate/Rhythm: regular rhythm and + bradycardic Vessels: normal peripheral pulses Extremities: + edema (+1-2 pitting edema BLE) Gastrointestinal (Abdomen): normal bowel sounds, soft, nontender, no hepatosplenomegaly Musculoskeletal: no cyanosis or clubbing, extremities motor strength 5/5 Ankle: + ecchymosis (Left hip consistent with hematoma) Skin: no rashes, warm and dry scattered abrasions and ecchymosis in various stages of healing Neurologic: PERRL, EOMI, accommodation nl, no face palsy, no dysarthria Psychiatric: Orientation: alert and oriented to person; + not oriented to place and + not oriented to time Insight: + limited insight Principal Diagnosis Acute respiratory failure with hypoxia Pneumonia due to COVID-19 virus JIMI in setting of CKD Stage III-resolved to baseline traumatic rhabdomyolysis Discharge Exam CONSTITUTIONAL: WNWD, vitals as above, generally well-appearing, NAD EYES: normal conjunctivae, no scleral icterus ENT: external ear and nose normal, oropharynx clear, no TM abnormality, no maxillary or ethmoid sinus tenderness NECK: trachea midline, no lymphadenopathy, normal thyroid RESPIRATORY: clear to auscultation bilaterally, no crackles, rales or wheezes, normal respiratory effort CARDIOVASCULAR: regular rate and rhythm, S1 and 2 heard without murmurs, gallops or rubs, no JVD, no peripheral edema, no carotid bruits CHEST: inspection of chest was normal (+pacemaker, +port) GASTROINTESTINAL: normal bowel sounds, soft, nontender, no hepatomegaly, no guarding MUSCULOSKELETAL: strength 5/5 throughout, head is normocephalic and atraumatic, neck supple, normal palpation of chest wall without tenderness SKIN: warm and dry, no rashes NEUROLOGIC: patellar DTRs 2+ bilat. PERRL, EOMI, no facial palsy, no d ysarthria. Touch, pain and proprioception normal. CN 2-12 grossly intact, no sensory deficit, normal cognition, normal speech, no tremor PSYCHIATRIC: alert cooperative and oriented to person, place and time. Euthymic mood, makes good eye contact, language grossly intact, recent and remote memory grossly intact. LYMPHATIC: no LAD Discharge Data Allergies Allergy/AdvReac Type Severity Reaction Status Date / Time No Known Allergies Allergy Unverified 04/26/21 10:40 Consultations 04/26/21 12:23 ED Decision to Admit Stat 05/01/21 15:26 Consult Cardiology Routine Ordered Studies Laboratory Results WBC 8.67 K/uL (4.8-10.8) 05/01/21 03:50 RBC 4.24 M/uL (4.7-6.1) L 05/01/21 03:50 Hgb 12.7 g/dL (14.0-18.0) L 05/01/21 03:50 Hct 38.8 % (42-52) L 05/01/21 03:50 MCV 91.5 fL (80-100) 05/01/21 03:50 MCH 30.0 pg (25-34) 05/01/21 03:50 MCHC 32.7 g/dL (32-36) 05/01/21 03:50 RDW Std Deviation 45.4 fL (36.4-46.3) 05/01/21 03:50 RDW Coeff of Porfirio 13.7 % (11.5-14.5) 05/01/21 03:50 Plt Count 298 K/uL (130-400) 05/01/21 03:50 MPV 9.5 fL (7.4-10.4) 05/01/21 03:50 Immature Gran % (Auto) 0.7 % 04/26/21 09:20 Neut % (Auto) 87.4 % 04/26/21 09:20 Lymph % (Auto) 6.1 % 04/26/21 09:20 [place] % (Auto) 5.7 % 04/26/21 09:20 Eos % (Auto) 0.0 % 04/26/21 09:20 Baso % (Auto) 0.1 % 04/26/21 09:20 Neut # (Auto) 5.96 K/uL (1.4-6.5) 04/26/21 09:20 Lymph # (Auto) 0.42 K/uL (1.2-3.4) L 04/26/21 09:20 [place]ascade # (Auto) 0.39 K/uL (0.11-0.59) 04/26/21 09:20 Eos # (Auto) 0.00 K/uL (0-0.5) 04/26/21 09:20 Baso # (Auto) 0.01 K/uL (0-0.2) 04/26/21 09:20 Immature Gran # (Auto) 0.05 K/uL (0.00-0.02) H 04/26/21 09:20 PT 26.6 Seconds (9.0-12.0) H 05/06/21 06:26 INR 2.8 (0.9-1.1) H 05/06/21 06:26 D-Dimer 1890 ug/L FEU (0-500) H* 04/29/21 07:04 Sodium 139 mmol/L (136-145) 05/06/21 06:26 Potassium 4.9 mmol/L (3.5-5.1) 05/06/21 06:26 Chloride 106 mmol/L (98-107) 05/06/21 06:26 Carbon Dioxide 28 mmol/L (21-32) 05/06/21 06:26 Anion Gap 4.0 (3-11) 05/06/21 06:26 BUN 31 mg/dl (7-18) H 05/06/21 06:26 Creatinine 1.20 mg/dl (0.6-1.4) 05/06/21 06:26 Est Cr Clr Drug Dosing 55.7 ml/min 05/06/21 06:26 Est GFR ( Amer) 64.0 ml/min 05/06/21 06:26 Est GFR (Non-Af Amer) 55.2 ml/min 05/06/21 06:26 BUN/Creatinine Ratio 25.9 (10-20) H 05/06/21 06:26 Glucose 86 mg/dl (70-99) 05/06/21 06:26 POC Glucose 136 mg/dl (70-99) H 04/30/21 20:08 Lactate 1.3 mmol/L (0.4-2.0) 04/26/21 10:11 Calcium 8.9 mg/dl (8.5-10.1) 05/06/21 06:26 Phosphorus 3.0 mg/dl (2.5-4.9) 04/29/21 07:04 Magnesium 2.5 mg/dl (1.8-2.4) H 05/04/21 06:12 Total Bilirubin 0.8 mg/dl (0.2-1) 05/01/21 03:50 Direct Bilirubin 0.2 mg/dl (0-0.2) 04/26/21 09:20 AST 53 U/L (15-37) H 05/01/21 03:50 ALT 67 U/L (12-78) 05/01/21 03:50 Alkaline Phosphatase 54 U/L (45-117) 05/01/21 03:50 Total Creatine Kinase 1100 U/L (39-308) H 04/28/21 07:07 Troponin I 0.360 ng/ml (0-0.045) H* 04/26/21 22:30 C-Reactive Protein 1.70 mg/dl (0-0.29) H 04/29/21 07:04 NT-Pro-B Natriuret Pep 639 pg/ml (0-1800) 04/26/21 09:20 Total Protein 5.8 gm/dl (6.4-8.2) L 05/01/21 03:50 Albumin 2.7 gm/dl (3.4-5.0) L 05/01/21 03:50 Globulin 3.1 gm/dl (2.5-4.0) 05/01/21 03:50 Albumin/Globulin Ratio 0.9 (0.9-2) 05/01/21 03:50 Procalcitonin 0.08 ng/ml (0-0.5) 04/26/21 09:20 TSH 1.380 uIu/ml (0.300-4.500) 05/01/21 03:50 Urine Color Yellow 04/26/21 20:20 Urine Appearance Clear (Clear) 04/26/21 20:20 Urine pH 6.0 (4.5-7.5) 04/26/21 20:20 Ur Specific [place] 1.012 (1.000-1.030) 04/26/21 20:20 Urine Protein Trace (Negative) H 04/26/21 20:20 Urine Glucose (UA) Negative (Negative) 04/26/21 20:20 Urine Ketones Negative (Negative) 04/26/21 20:20 Urine Blood 2+ (Negative) H 04/26/21 20:20 Urine Nitrite Negative (Negative) 04/26/21 20:20 Urine Bilirubin Negative (Negative) 04/26/21 20:20 Urine Urobilinogen Negative (Negative) 04/26/21 20:20 Ur Leukocyte Esterase Negative (Negative) 04/26/21 20:20 Urine WBC (Auto) 1-5 /hpf (0-5) 04/26/21 20:20 Urine RBC (Auto) 0-4 /hpf (0-4) 04/26/21 20:20 U Hyaline Cast (Auto) 1-5 /lpf (0-5) 04/26/21 20:20 U Epithel Cells (Auto) 5-10 /lpf (0-5) H 04/26/21 20:20 Urine Bacteria (Auto) Negative (Negative) 04/26/21 20:20 Adenovirus (PCR) Not Detected (NotDetected) 04/26/21 10:11 B. pertussis DNA (PCR) Not Detected (NotDetected) 04/26/21 10:11 B.parapertussis DNA PCR Not Detected (NotDetected) 04/26/21 10:11 C. pneumoniae DNA (PCR) Not Detected (NotDetected) 04/26/21 10:11 Coronavirus OC43 (PCR) Not Detected (NotDetected) 04/26/21 10:11 Coronavirus HKU1 (PCR) Not Detected (NotDetected) 04/26/21 10:11 Coronavirus 229E (PCR) Not Detected (NotDetected) 04/26/21 10:11 COVID-19 Eval Order Covid19 at [facility] 05/01/21 14:09 SARS-CoV-2 (PCR) POSITIVE (Negative) A* 05/01/21 14:09 Coronavirus NL63 (PCR) Not Detected (NotDetected) 04/26/21 10:11 Human Metapneumovir PCR Not Detected (NotDetected) 04/26/21 10:11 Influenza Type A (PCR) Not Detected (NotDetected) 04/26/21 10:11 Influenza Type B (PCR) Not Detected (NotDetected) 04/26/21 10:11 M. pneumoniae (PCR) Not Detected (NotDetected) 04/26/21 10:11 Parainfluenza 1 (PCR) Not Detected (NotDetected) 04/26/21 10:11 Parainfluenza 2 (PCR) Not Detected (NotDetected) 04/26/21 10:11 Parainfluenza 3 (PCR) Not Detected (NotDetected) 04/26/21 10:11 Parainfluenza 4 (PCR) Not Detected (NotDetected) 04/26/21 10:11 RSV (PCR) Not Detected (NotDetected) 04/26/21 10:11 Entero/Rhino (PCR) Not Detected (NotDetected) 04/26/21 10:11 Blood Type Cancelled 04/26/21 11:15 Antibody Screen Cancelled 04/26/21 11:15 Crossmatch See Detail 04/26/21 11:15 Impressions Chest X-Ray 05/03/21 08:13 XR chest 1V portable CLINICAL HISTORY: Hypoxia, COVID COMPARISON STUDY: Chest radiograph April 26, 2021. FINDINGS: Elevation the right hemidiaphragm is unchanged. There may be minimal right lung opacities. There is no pneumothorax or pleural effusion. Cardiac size is stable. Prosthetic cardiac valve is noted. Mediastinal contours are normal. There is no evidence for pulmonary edema. Severe degenerative changes within both shoulders are noted as well as postoperative findings within the left emily ral head. IMPRESSION: 1. Possible minimal right lung opacities. 2. Cardiomegaly without evidence for pulmonary edema. ACT 112: Negative or not required by law. Electronically signed by: Maxwell Funez M.D. 05/03/2021 9:19 AM Hospital Course (1) Acute respiratory failure with hypoxia: (2) Pneumonia due to COVID-19 virus: Patient is a 85 yr male who presented from home after a fall and was admitted to [facility] 04/15 through 04/16 after a fall and sustaining a left hip hematoma. COVID-19 pneumonia Hypoxia CXR:Atelectasis without acute abnormality. Stable cardiomegaly. Patient received Pfizer doses x 26 August 2020. CRP 4.29 Procalcitonin 0.08 D-dimer 18,000 Patient anticoagulated on Coumadin at baseline Subtherapeutic INR on presentation:1.7 Completed remdesivir course Will complete Dexamethasone course tomorrow Continue Lasix 40 mg daily Continue Incentive spirometry and flutter Waiting for Rehab placement (3) JIMI (acute kidney injury): (4) CKD (chronic kidney disease) stage 3, GFR 30-59 ml/min: JIMI resolved by discharge. (5) Chronic diastolic CHF (congestive heart failure): Euvolemic at time of discharge, continue furosemide 40 mg daily. Monitor daily weights. (6) Elevated troponin: Troponin 0.133 (was elevated about 2 weeks ago), peaked at 0.4 and trended down No reports of chest pain, EKG without acute ST changes Elevated troponin likely due to renal function and possible demand ischemia from recent illness (7) S/P TAVR (transcatheter aortic valve replacement): (8) [facility] (current) use of anticoagulants: INR was therapeutic at time of discharge. (9) Traumatic rhabdomyolysis: CPK 4000 on admission Trending down to 1100 Likely due to recent fall with left thigh hematoma Total Time Total Time Spent Total Time Spent (In Minutes): 60 Discharge Plan Discharge Items Patient Disposition: Transfer Inpatient Rehab Fac Reason For Visit: FALL, WEAK Discharge Diagnosis: Acute respiratory failure with hypoxia Pneumonia due to COVID-19 virus JIMI in setting of CKD Stage III-resolved to baseline traumatic rhabdomyolysis Activity: Resume your previous activity Non-emergency contact: Primary Care Provider Call non-emergency contact if: you have any medication questions and your symptoms worsen Follow-up/Referrals: Jose J Coppola MD [Primary Care Provider] - Diet: Low Sodium (2gm) Addtl Attending Provider Instructions: Please take all medications as instructed on discharge list below. It is recommended that you follow-up with your primary care doctor within 1 week of discharge from the hospital. This will be to ensure you're still doing well and to order a repeat chest x-ray in 4 weeks to ensure complete resolution of your pneumonia. Please observe all isolation recommendations per CDC guidelines including appropriate social distancing and masking practices to prevent continued spread of novel coronavirus infection. It was a pleasure taking care of you! Please call if you have any questions or problems. You can reach a [facility] hospitalist on duty at [facility] 24 hours a day by calling [phone]. Take care of yourself. Shannan Cifuentes, DO [facility] Center[facility] Pending Studies at Discharge: No Stand-Alone Forms: My [facility] Skilled Items Patient informed of condition?: Yes DNR: No Discharge Level of Care: Acute rehab Communicable Disease: Yes Discharge Prognosis: Stable Lines: None Urinary Catheter: No Medications and DC Order Prescriptions: Continued furosemide 40 mg Tablet 40 mg PO QAM RF: 0 warfarin 2.5 mg Tablet 1.25 mg PO MOWEFR RF: 0 amlodipine 5 mg Tablet 5 mg PO PM RF: 0 aspirin 81 mg Tablet,Delayed Release (Dr/Ec) 81 mg PO PM RF: 0 losartan 25 mg Tablet 25 mg PO PM RF: 0 magnesium 250 mg Tablet 250 mg PO DAILY RF: 0 glucosamine-chondroitin [Osteo Bi-Flex] 250-200 mg Tablet 2 tab PO DAILY RF: 0 Centrum Silver Men 300-600-300 mcg Tablet 1 tab PO PM RF: 0 warfarin 2.5 mg Tablet 2.5 mg PO SUTUTHSA RF: 0 Triple Antibiotic 3.5mg-400 unit- 5,000 unit/gram Ointment 1 applic EXT BID Qty: 1 RF: 0 vitamin B complex Tablet 1 tab PO DAILY RF: 0 Discontinued cephalexin [Keflex] 500 mg Capsule 500 mg PO TID RF: 0 Discharge Orders: Discharge Order (Routine); Ordered 05/06/21 Ordered By: Shannan Issa/Other Patient Handouts: Eating Heart-Healthy Foods Admission Data Admit Date/Time: 04/26/21 12:34 Attending Provider: Shannan Cifuentes Admit Provider: Andreia Ramirez I. Primary Care Provider: Jose J Coppola Other Providers: Jayjay Velazco Other Interventions: Discharge Summary Assessment (RN) Last Done: 05/06/21 13:30
[2021-05-06] MEDS: WARFARIN SOD 1 MG TAB PO SCH ×2 (15:01→15:20)
== END 2021-05-06 15:54 | DRG 177 ==
LOC: ED 09:10 → 2W 12:34 → SUATTDRO 12:34 → 2W 13:55 → 2S 15:56